=== PATIENT | female | born 1950 | race Two or more races ===

== ENCOUNTER → 2024-12-01 | Day surgery (SDC) | payer OTHER ==
[~2024-12-01] VITALS: Ht 147.3 cm; Wt 48.5 kg
[~2024-12-01] MED LIST: ATOR20TA PO; CHOL20004 PO; FERR-7 PO; KETAMINE 50mg/ML 1ml syringe ONE; LISI20TA56 PO; OMEP-448 PO; ONDANSETRON HCL 4 MG/2 ML VIAL ONE
--- NOTE | 2024-12-01 10:06 | DVHHP2 ---
GI H&P Pre-Op Assessment Date: 12/01/24 Chief complaint: heartburn HPI: per clinic note Past medical history: per clinic note Past surgical history: per clinic note Family history: per clinic note Physical exam: General: NAD, AAOX3 HEENT: PERRL, no scleral icterus, normal hearing, gums without lesions or bleeding, oropharynx clear without erythema or exudate. Neck: Supple without enlargement of the thyroid, or lymphadenopathy. Chest: Normal size and shape, no tenderness, lung morales clear to auscultation and percussion, nonlabored breathing. Heart: RRR, no murmur Abdomen: non-distended, no tenderness to palpation, +BS, no hepatosplenomegaly Extremities: no edema Neurological: CN II-XII intact, sensation intact in all extremities, 5+ strength in all extremities Skin: No rashes, No jaundice Assessment: - heartburn Plan: - EGD - Risks (bleeding, infection, perforation, reaction to sedation medications and cardiopulmonary arrest) and benefit of the procedure were explained to patient. Patient agrees to undergo the procedure. DELFINO BENITES MD Dec 01, 2024 10:06
--- NOTE | 2024-12-01 10:08 | DVHOP2 ---
Operative Report DATE OF OPERATION: 12/01/24 PROCEDURE: Upper Endoscopy. PREOPERATIVE INDICATION: The patient is a 74 -year-old female undergoing endoscopy for GERD. POSTOPERATIVE DIAGNOSES: 1. Hiatal hernia 26-33 cm PROCEDURE PERFORMED BY: Pete Shea SCOPE: Olympus videoendoscope. ASA CLASS: 3 PREOPERATIVE MEDICATIONS: MAC with Dr Monroy PROCEDURE IN DETAIL: After obtaining an informed consent, the patient was placed on left lateral decubitus position. The patient was then sedated with the above medications. A bite block was placed between her teeth. The endoscope was then passed through the oropharynx, into the esophagus, and through the stomach and pylorus up to the second and third part of the duodenum. The stomach and duodenum were normal in appearance. There was hiatal hernia 26- 33 cm. The GEJ was normal in appearance at 26 cm. The esophagus was normal in appearance. The endoscope was then withdrawn. The patient tolerated the procedure well without difficulty. COMPLICATIONS : None SPECIMENS: none DISPOSITION: D/C to home PLAN: 1. Continue with PPI PETE SHEA MD Dec 01, 2024 10:08
--- NOTE | 2024-12-01 10:09 | DVHDS2 ---
Physician Discharge Progress N Final Diagnosis: hiatal hernia Operations or Procedures: Operations or Procedures EGD Condition on Discharge: Good Disposition: Home Discharge Instructions: Diet: Regular Activity: No Restrictions, As Tolerated Medications: resume with previous home medications Follow Up Care: Discharge Statement: "Patient was advised to return to the ER or call 911 if any headaches, dizziness, shortness of breath, chest pain, abdominal pain, bleeding, fevers, or worsening of medical condition. Patient was counseled about treatment plan, medications, possible side effects, patientverbalized understanding. All questions were answered to the best of my ability. This discharge took greater then 30 minutes in planning, reviewing documentation, counseling the patient, and discussing with other team members." DELFINO BENITES MD Dec 01, 2024 10:08
[2024-12-01 10:10] VITALS: PULSE 95; RESP 18; TEMP 98; O2SAT 100
[2024-12-01 10:35] VITALS: BP 144/63; PULSE 87; RESP 16; O2SAT 98
== END | disposition home or self-care (01) ==
LOC: GI 07:49
PROVIDERS: ATTEND Internal Medicine Gastroenterology
DX: R10.13 Epigastric pain (principal); R12 Heartburn; K21.9 Gastro-esophageal reflux disease without esophagitis; K44.9 Diaphragmatic hernia without obstruction or gangrene; I10 Essential (primary) hypertension; E78.5 Hyperlipidemia, unspecified; D64.9 Anemia, unspecified; Z90.710 Acquired absence of both cervix and uterus; Z96.651 Presence of right artificial knee joint; Z98.890 Other specified postprocedural states
CPT/HCPCS: 43235; J2405; J7030

== ENCOUNTER 2025-10-03 18:33 | Inpatient (IN) | payer OTHER ==
[~2025-10-03] VITALS: Ht 147.3 cm; Wt 51.2 kg
[~2025-10-03 18:33] MED LIST changes: -KETAMINE 50mg/ML 1ml syringe ONE; -ONDANSETRON HCL 4 MG/2 ML VIAL ONE
[2025-10-03 19:12] LABS: Hematocrit 38.1 % (36.0-46.0); Hemoglobin 12.5 g/dL (12.2-16.2); Mean Corpuscular Hemoglobin 27.3 pg (28.0-32.0); Mean Corpuscular Volume 83.4 fL (80.0-100.0); Nucleated Red Blood Cells % 0.0 %
[2025-10-03 19:23] LABS: Alanine Aminotransferase 17 U/L (7-40); Albumin 4.8 g/dL (3.2-4.8); Alkaline Phosphatase 107 U/L (46-116); Anion Gap 11 (5-15); BUN/Creatinine Ratio 15.0 (10.0-20.0); Blood Urea Nitrogen 22 mg/dL (9-23); Calcium 10.1 mg/dL (8.7-10.4); Carbon Dioxide 28 mmol/L (20-31); Chloride 105 mmol/L (98-107); Potassium 4.3 mmol/L (3.5-5.1); Sodium 144 mmol/L (136-145); Total Protein 8.0 g/dL (5.7-8.2)
[2025-10-03 19:24] LABS: Bilirubin, Total < 0.2 mg/dL (0.2-1.0); Glucose 115 mg/dL (74-106)
--- NOTE | 2025-10-03 19:26 | DVH ---
CHEST RADIOGRAPH Indication: sob Technique: Single frontal view of the chest was obtained COMPARISON: None FINDINGS: Lungs and pleural spaces are clear. Cardiac silhouette and nena are within normal limits. Bones and soft tissues demonstrate no significant abnormality apart from a moderate size hiatal hernia. IMPRESSION: No acute disease.
--- NOTE | 2025-10-03 19:46 | ED.PDOC ---
SOB-HPI HPI Comments HPI: 75 y/o F, presents to the ED for CC of shortness of breath. Patient is a poor historian. Patient states, she has had multiple chronic issues since, November 2024 including unspecified heart issues that have resulted in difficulty breathing d/t "pressure" within her lungs. Patient reports that she has followed up with her [employer] for SS and has received multiple test, including: a stress test and angiogram in April 2025 without receiving a definitive diagnosis. At this time patient denies chest pain, palpitations, headache, or dizziness. No other symptoms or modifying factors are obtainable at this time. Initial Vitals BP: HR: RR: O2 Sat: Temp: Past Medical history: HTN, HLD Past Surgical history: RIGHT KNEE Medications: ATORVASTATIN, LISINOPRIL Social History: Denies smoking, ETOH, and drug use. Allergies: CARISOPRODOL gomes. HPI: Poor Historian. Patient had heart angiogram in April of this year and had a cardiac stress test in April as well. Patient is on aspirin. Patient denies any actual chest pain or actual dyspnea. REVIEW OF SYSTEMS: CONSTITUTIONAL: Denies acute: fever, diaphoresis, chills, generalized weakness. HEAD: Denies acute: headache, photophobia Eyes: Denies acute: Double vision, vision loss, eye pain, eye discharge. EARS: Denies acute: tinnitus, hearing loss, ear discharge, ear pain, THROAT: Denies acute: sore throat, swelling, difficulty swallowing , pain with swallowing, change in voice. NECK: Denies acute: neck pain, neck swelling, stiff neck. HEART: Denies acute : palpitations, LUNGS: Denies acute: SOB, wheezing, cough, hemoptysis ABDOMEN: Denies acute: abdominal pain, Nausea, Vomiting, diarrhea, melena , hematemesis, hematochezia SKIN: Denies acute: rash, redness, lesions, itchiness. EXTREMITIES: Denies acute: calf pain, numbness, tingling, weakness, denies pain in extremity. Denies acute: Low back pain. Neuro: Denies acute: focal neurological deficit, motor or sensory focal neurological deficit, tremors, seizure like activity, confusion, dizziness, change in mental status, loss of bowel or bladder function, cauda equina like symptoms. : Denies acute: dysuria, hematuria, flank pain, increase in urinary frequency. PSYCH: Denies acute: hallucination, suicidal ideation, homicidal ideation. FEMALE: Denies acute: abnormal vaginal bleeding, foul odor, unusual discharge. PHYSICAL EXAM: General: ----no----acute distress, awake and alert. Head: normocephalic, atraumatic. No raccoon's eyes, no dickerson sign. Neck: supple, trachea is midline, no swelling. Throat: Normal phonation. Eyes:, no erythema, no purulent discharge, no proptosis, no icterus. Heart: regular rate, regular rhythm, no significant murmur appreciated. Lungs: no apparent respiratory distress, Able to speak in full sentences. No wheezing, no rhonchi, no crackles. No stridors Clear to auscultation bilaterally. Abdomen: non tender to palpation, non distended, soft, no guarding, no rebound, + bowel sounds. Neuro: Awake, Alert, oriented to name, self, situation, follows commands GCS=15. Speech is normal. Skin: no petechia, no purpura, no cyanosis, non-pale, not jaundice. Lower extremities: --trace bilateral- Pitting edema no deformity, no focal swelling, no calf TTP. Makes eye contact. moves all four extremities. Face: no apparent facial droop. Ambulating in the ED independently. ED COURSE: DISCLAIMER: This medical document was created using an electronic medical record system with voice recognition software and computerized dictation system. Although this doc ument has been carefully reviewed, there might still be some phonetic and typographical errors. Occasional wrong-word or "sound-alike" substitutions may have occurred due to the inherent limitations of voice recognition software. These areas are purely typographical due to imperfections of the software programs and do not reflect any compromise in the patient's medical care. Please read the chart carefully and recognize, using context, where these substitutions have occurred. Chief Complaint: Shortness of Breath Time Seen by MD: 19:30 Reviewed notes: Nurses Notes, Medications, Allergies Information Source: Patient Mode of Arrival: Ambulatory Severity: Moderate Timing: Months Duration: Since onset Context: At Rest PE Risk Factors: None History of: None Prehospital treatment: None Modifying Factors: Nothing Associated Signs and Symptoms: None Was a procedure done? Was a procedure done?: No Differential Dx Differential Diagnosis: Anxiety, Pneumonia, Sinusitis, Pharyngitis, URI, Other (DDx include ACS, unstable angina, anxiety, PE, pneumothroax, neoplasm, cardiac ischemia, COPD, asthma, CHF, pleural effusion, tobacco abuse, pneumonia, hypoxia, hypercapnia, anemia., infection/sepsis., pulmonary edema. Asthma, Cardiac tamponade, infection.) X-Ray, Labs, Meds, VS Vital Signs Date Time Temp Pulse Resp B/P (MAP) Pulse Ox O2 Delivery O2 Flow Rate FiO2 10/03/25 21:38 97.7 87 16 155/71 (99) 97 97.7 10/03/25 18:35 98.4 95 20 176/83 94 98.4 Lab Test 10/03/25 19:50 10/03/25 19:48 10/03/25 18:54 Range/Units Troponin I High Sensitivity 9 9 </=34 ng/L Blood Gas Specimen Type Arterial Blood Gas Sample Site Left radial Blood Gas Patient Temperature 37.0 Arterial Blood Date Drawn [id number] Arterial Blood pH 7.403 7.350-7.450 Arterial Blood Partial Pressure CO2 38.8 32.0-45.0 mmHg Arterial Blood Partial Pressure O2 68.9 L 83.0-108.0 mmHg Arterial Blood HCO3 23.7 21.0-28.0 mmol/L Arterial Blood Oxygen Saturation 93.5 L 94.0-98.0 % Arterial Blood Base Excess -0.9 -2.0-3.0 mmol/L Arterial Blood Oxyhemoglobin 92.4 L 94.0-98.0 % Arterial Blood Carboxyhemoglobin 1.0 0.5-1.5 % Arterial Blood Methemoglobin 0.2 0.0-1.5 % Skyler Test Modified Blood Gas Total Hemoglobin 13.00 12.0-16.0 g/dL Blood Gas Modality Room air FiO2 % 21.0 White Blood Count 6.9 4.4-10.8 10^3/uL Red Blood Count 4.57 4.0-5.20 10^6/uL Hemoglobin 12.5 12.2-16.2 g/dL Hematocrit 38.1 36.0-46.0 % Mean Corpuscular Volume 83.4 80.0-100.0 fL Mean Corpuscular Hemoglobin 27.3 L 28.0-32.0 pg Mean Corpuscular Hemoglobin Concent 32.8 32.0-36.0 g/dL Red Cell Distribution Width 14.5 H 11.8-14.3 % Platelet Count 212 140-450 10^3/uL Mean Platelet Volume 8.8 6.9-10.8 fL Neutrophils (%) (Auto) 53.5 37.0-80.0 % Lymphocytes (%) (Auto) 36.0 10.0-50.0 % Monocytes (%) (Auto) 8.1 0.0-12.0 % Eosinophils (%) (Auto) 2.0 0.0-7.0 % Basophils (%) (Auto) 0.4 0.0-2.0 % Neutrophils # (Auto) 3.7 1.6-8.6 10 ^3/uL Lymphocytes # (Auto) 2.5 0.4-5.4 10 ^3/uL Monocytes # (Auto) 0.6 0-1.3 10 ^3/uL Eosinophils # (Auto) 0.1 0-0.8 10 ^3/uL Basophils # (Auto) 0 0-0.2 10 ^3/uL Nucleated Red Blood Cells 0.0 % Sodium Level 144 136-145 mmol/L Potassium Level 4.3 3.5-5.1 mmol/L Chloride Level 105 98-107 mmol/L Carbon Dioxide Level 28 20-31 mmol/L Anion Gap 11 5-15 Blood Urea Nitrogen 22 9-23 mg/dL Creatinine 1.47 H 0.550-1.02 mg/dL Glomerular Filtration Rate Calc 37 >90 mL/min BUN/Creatinine Ratio 15.0 10.0-20.0 Serum Glucose 115 H 74-106 mg/dL Lactic Acid Level 1.0 0.4-2.0 mmol/L Calcium Level 10.1 8.7-10.4 mg/dL Total Bilirubin < 0.2 L 0.2-1.0 mg/dL Aspartate Amino Transferase (AST) 24 13-40 U/L Alanine Aminotransferase (ALT) 17 7-40 U/L Alkaline Phosphatase 107 46-116 U/L B-Type Natriuretic Peptide 95.62 0-100 pg/mL Total Protein 8.0 5.7-8.2 g/dL Albumin 4.8 3.2-4.8 g/dL [facility] [id number] [facility] [address] Ph: [phone] DIAGNOSTIC IMAGING Diagnostic Imaging Report : [id number] Signed PATIENT: OZ CROOKACCT: [id number] UNIT: [id number] : 1950 LOC: ER ROOM / BED: / AGE / SEX: 75 / F ADM STATUS: REG ER SERVICE 44 ORDERING PHYSICIAN: OMAIRA MCLAUGHLIN DO PROCEDURE(s): CXRP - CHEST PORTABLE REASON: sob ORDER NUMBER(s): [id number], ACCESSION NUMBER(s): [id number] CHEST RADIOGRAPH Indication: sob Technique: Single frontal view of the chest was obtained COMPARISON: None FINDINGS: Lungs and pleural spaces are clear. Cardiac silhouette and nena are within normal limits. Bones and soft tissues demonstrate no significant abnormality apart from a moderate size hiatal hernia. IMPRESSION: No acute disease. ATED BY: EMILIE IRBY MD DICTATED DATE/TIME: 10/03/251922 SIGNED BY: EMILIE IRBY MD SIGNED DATE/TIME: 10/03/251922 CC: Time of 1ST Reevaluation: 20:00 Reevaluation 1ST: Unchanged Patient Education/Counseling: Diagnosis, Treatment Family Education/Counseling: Other Comments MDM: patient presented with the above HPI.--vague symptoms of possible chest pain possible long pressure----workup was initiated. patient was found with the above mentioned diagnosis. the following medications were ordered: please refer to order lists of meds and tests obtained by myself Dr. Mclaughlin. Patient ED course and VS have been stabilized. Patient has been reassessed in the ED and remained in a stable condition. Pertinent incidental findings were discussed with the patient and/or family. Patient/family voices understanding and is agreeable with plan. Patient has been observed in the ED adequate length of time to insure improvement/stability. Escalation of care considered: Consideration of escalation to observation or admission Workup was essentially unremarkable however patient's ABG shows hypoxemia. Patient was ADMITTED to the medicine team for further evaluation and treatment of their presentation. All the reports of any imaging studies that were ordered by myself were reviewed by myself. SEPSIS Sepsis Screen Date sepsis recognized/suspect: Oct 03, 2025 Time Sepsis recognized/suspect: 1839 Recent Procedure: No On Antibiotic Therapy: No Respiratory Rate >20: No Heart Rate >90: No Temp<36 C (96.8 F) or >38.3 C: No SBP <90 or MAP <65 mmHG: No New Acute Mental Status Change: No Is the patient on CPAP, BIPAP,: No Physician Orders Talent Assistant (10/03/25 ) Heplock Iv (10/03/25 ) Chest Portable (10/03/25 18:45) Electrocardigram (10/03/25 18:45) Abg W/ Co-Ox (10/03/25 19:25) Vital Signs Date Time Temp Pulse Resp B/P (MAP) Pulse Ox O2 Delivery O2 Flow Rate FiO2 10/03/25 21:38 97.7 87 16 155/71 (99) 97 97.7 10/03/25 18:35 98.4 95 20 176/83 94 98.4 Laboratory Tests Test 10/03/25 18:54 Lactic Acid Level 1.0 mmol/L (0.4-2.0) White Blood Count 6.9 10^3/uL (4.4-10.8) Departure 1 Departure Time of Disposition: 20:41 Impression: Primary Impression: Hypoxemia Disposition: ADMITTED INPATIENT Admit to: [facility] Condition: Guarded Additional Instructions: [place] [address] Ph: [phone] DIAGNOSTIC IMAGING Diagnostic Imaging Report : [id number] Signed PATIENT: OZ CROOK ACCT: [id number] UNIT: [id number] : 1950 LOC: ER ROOM / BED: / AGE / SEX: 75 / F ADM STATUS: REG ER SERVICE 44 ORDERING PHYSICIAN: OMAIRA MCLAUGHLIN DO PROCEDURE(s): CXRP - CHEST PORTABLE REASON: sob ORDER NUMBER(s): [id number], ACCESSION NUMBER(s): [id number] CHEST RADIOGRAPH Indication: sob Technique: Single frontal view of the chest was obtained COMPARISON: None FINDINGS: Lungs and pleural spaces are clear. Cardiac silhouette and nena are within normal limits. Bones and soft tissues demonstrate no significant abnormality apart from a moderate size hiatal hernia. IMPRESSION: No acute disease. ATED BY: EMILIE IRBY MD DICTATED DATE/TIME: 10/03/251922 SIGNED BY: EMILIE IRBY MD SIGNED DATE/TIME: 10/03/251922 CC: Discharged With: Self Critical Care Note Critical Care Time?: Yes (35 min-critical care time only) Heart Score Heart Score: Heart Score Response (Comments) Value History Slightly Suspicious 0 EKG Normal 0 Age >65 2 Risk Factors 1 or 2 risk factors 1 Troponin Normal limit 0 Total 3 I personally scribed for OMAIRA MCLAUGHLIN DO ([email or web address]) on 10/03/25 at 19:46. Electronically submitted by Makenzie Torre ([email or web address]). I personally scribed for OMAIRA MCLAUGHLIN DO ([email or web address]) on 10/03/25 at 20:01. Electronically submitted by aMkenzie Torre ([email or web address]). OMAIRA MCLAUGHLIN DO Oct 03, 2025 19:46
[2025-10-03 19:55] LABS: Base Excess -0.9 mmol/L (-2.0-3.0)
[2025-10-03 21:40] VITALS: O2SAT 97
[2025-10-03] MEDS ORDERED: NITROGLYCERIN 0.4 MG SL TAB SL PRN (21:45)
[2025-10-03] MEDS ORDERED: DOCUSATE SOD 100 MG CAP PO PRN (21:45)
[2025-10-03 22:38] VITALS: PULSE 89; RESP 19; O2SAT 98
[2025-10-03] MEDS: hydrALAZINE HCL 20 MG/ML VL IV ONE (23:17)
[2025-10-03] MEDS: MORPHINE SULFATE INJ 2 MG/ml SYRG IV PRN (23:47)
[2025-10-03] MEDS: ONDANSETRON HCL 4 MG/2 ML VIAL IV PRN (23:47)
--- NOTE | 2025-10-03 23:53 | ECG ---
[facility] Test Date: 2025-10-03 Test Time: 23:51:55 Pat Name: OZ RASHIDDepartment: [facility] Room: 0223T Gender: F Asphalt Raker: WILBERTO : 1950 Requested By: OMAIRA MCLAUGHLIN Order Number: [id number] Reading MD: Tim White Measurements Intervals [place] Rate: 118 P: 56 [place]: 135 QRS: 76 QRSD: 71 T: 21 QT: 301 QTc: 422 Interpretive Statements Sinus tachycardia Multiple ventricular premature complexes Aberrant complex Biatrial enlargement Borderline ST depression, diffuse leads Electronically Signed On 10-09-2025 10:07:16 PST by Tim White Please click the below link to view image of tracing.
[2025-10-04] VITALS (11 sets, daily range): BP systolic 113–144; BP diastolic 51–69; PULSE 54–115; RESP 16–20; TEMP 97.4–98.4; O2SAT 95–100
[2025-10-04] MEDS: ACETAMINOPHEN 325 MG TAB PO PRN (01:19)
[2025-10-04] MEDS ORDERED: MELO7.5T7 (01:21)
[2025-10-04] MEDS ORDERED: FAMO-12 (01:21)
[2025-10-04 06:09] LABS: Hematocrit 36.1 % (36.0-46.0); Hemoglobin 12.1 g/dL (12.2-16.2); Mean Corpuscular Hemoglobin 27.8 pg (28.0-32.0); Mean Corpuscular Volume 83.0 fL (80.0-100.0); Nucleated Red Blood Cells % 0.0 %
[2025-10-04 06:26] LABS: Alanine Aminotransferase 16 U/L (7-40); Alkaline Phosphatase 82 U/L (46-116); Anion Gap 10 (5-15); BUN/Creatinine Ratio 14.4 (10.0-20.0); Blood Urea Nitrogen 19 mg/dL (9-23); Calcium 9.7 mg/dL (8.7-10.4); Carbon Dioxide 26 mmol/L (20-31); Glucose 95 mg/dL (74-106); Potassium 4.7 mmol/L (3.5-5.1); Sodium 144 mmol/L (136-145); Total Protein 7.3 g/dL (5.7-8.2)
[2025-10-04 06:27] LABS: Albumin 4.3 g/dL (3.2-4.8); Bilirubin, Total 0.3 mg/dL (0.2-1.0)
[2025-10-04 06:28] LABS: Chloride 108 mmol/L (98-107)
--- NOTE | 2025-10-04 08:13 | DVHPN2 ---
Progress Note - Dictate Date Seen: Oct 04, 2025 Medical Necessity Reason Pt with a Central, PICC or Fol: No vital signs Vital Sign Date Time Temp Pulse Resp B/P (MAP) Pulse Ox O2 Delivery O2 Flow Rate FiO2 10/04/25 05:00 97.4 77 16 123/51 (75) 95 97.4 10/04/25 00:35 Room Air* 0 21 Total Intake and Output 10/03/25 10/03/25 10/04/25 15:00 23:00 07:00 Intake Total 200 ml Balance 200 ml medications Current Medications Medications Dose Ordered Sig/Efren Route Start Time Stop Time Status Last Admin Dose Admin Acetaminophen 325 mg Q4HP PRN PO 10/03/25 21:45 10/04/25 01:19 Acetaminophen/ Hydrocodone Bitart 1 tab Q4HP PRN PO 10/03/25 21:45 Ondansetron HCl 4 mg Q4HP PRN IV 10/03/25 21:45 10/03/25 23:47 Docusate Sodium 100 mg BIDPRN PRN PO 10/03/25 21:45 Nitroglycerin 0.4 mg Q5MINP PRN SL 10/03/25 21:45 Morphine Sulfate 2 mg Q30M PRN IV 10/03/25 21:45 10/03/25 23:47 laboratory and microbiology Laboratory Tests 10/04/25 05:31 Test 10/04/25 05:31 Range/Units Serum Glucose 95 74-106 mg/dL Problem List 1. Atypical chest pain Monitor, cardiology consult, echocardiogram, obtain troponin 2. HLD Monitor, lipid panel 3. Benign essential hypertension Monitor, antihypertensives 4. Valvular heart disease Monitor, cardiology consult 5. Pulmonary hypertension Monitor 6. Shortness of breath Monitor, as needed pain meds, as needed supplemental O2 Assessment/Plan Subjective Patient is awake and alert. Objective Patient was admitted for atypical chest pain and shortness of breath. Patient apparently has some type of valvular disease and pulmonary hypertension. I did update patient's daughter at bedside. Troponin levels were negative. Blood pressure was uncontrolled in the 170s. Antihypertensives were added and blood pressure is now in the 140s. Total cholesterol is 121. Plan Cardiology consult. Echocardiogram is pending. Monitor on EKG. Possible plan for angiogram. Plan discussed with: Patient, Other DEUCE SIMEON NP Oct 04, 2025 08:13
--- NOTE | 2025-10-04 08:13 | DVHHP2 ---
Admitting Diagnosis: SOB History of Present Illness 75 y/o F, presents to the ED for CC of shortness of breath. Patient is a poor historian. Patient states, she has had multiple chronic issues since, November 2024 including unspecified heart issues that have resulted in difficulty breathing d/t "pressure" within her lungs. Patient reports that she has followed up with her Laboratory Supervisor for SS and has received multiple test, including: a stress test and angiogram in April 2025 without receiving a definitive diagnosis. At this time patient denies chest pain, palpitations, headache, or dizziness. No other symptoms or modifying factors are obtainable at this time. While in the emergency department the patient was evaluated by the provider, As per provider: Labs, vital signs, and imagining monitored. Patient will be admitted for further evaluation and treatment. I discussed admission with the patient/family and is in agreement to treatment plan. Patient Family History: Patient reports no known family medical history. Allergies: Coded Allergies: Carisoprodol (Unverified Allergy, Intermediate, Hives, itchy, 11/24/24) Home Meds Reported Medications Meloxicam (Meloxicam) 7.5 Mg Tab 10/04/25 Famotidine (Famotidine) 20 Mg Tab 10/04/25 Omeprazole (Omeprazole Dr) 40 Mg Cap, 40 MG PO DAILY, CAP 11/24/24 Ferrous Sulfate (Iron) 325 Mg Tab, 325 MG PO DAILY, TAB 11/24/24 Cholecalciferol (D3) 50 Mcg Cap, 50 MCG PO DAILY, CAP 11/24/24 Atorvastatin Calcium (Lipitor) 20 Mg Tab, 20 MG PO QPM, TAB 11/24/24 Lisinopril (Lisinopril) 20 Mg Tab, 20 MG PO QPM, TAB 11/24/24 Current Medications Current Medications Medications (Trade) Dose Ordered Sig/Efren Route PRN Reason Start Time Stop Time Status Last Admin Acetaminophen (Tylenol Tablet) 325 mg Q4HP PRN PO MILD PAIN (1-3 PAIN SCALE) 10/03/25 21:45 10/04/25 01:19 Acetaminophen/ Hydrocodone Bitart ([place] 5/325MG Tab) 1 tab Q4HP PRN PO MODERATE PAIN (4-6 PAIN SCALE) 10/03/25 21:45 10/04/25 17:11 Ondansetron HCl (Zofran) 4 mg Q4HP PRN IV NAUSEA / VOMITING 10/03/25 21:45 10/03/25 23:47 Docusate Sodium (Colace Capsule) 100 mg BIDPRN PRN PO FOR CONSTIPATION 10/03/25 21:45 Nitroglycerin (Ntrostat Sublingual) 0.4 mg Q5MINP PRN SL FOR CHEST PAIN 10/03/25 21:45 Morphine Sulfate 2 mg Q30M PRN IV FOR CHEST PAIN 10/03/25 21:45 10/03/25 23:47 Atorvastatin Calcium (Lipitor) 20 mg QPM PO 10/04/25 18:00 10/04/25 17:05 Famotidine (Pepcid Tablet) 20 mg BID PO 10/04/25 10:00 UNV Lisinopril (Zestril Tablet) 20 mg QPM PO 10/04/25 18:00 10/04/25 17:10 Patient Own Medication 50 mcg DAILY PO 10/04/25 10:00 UNV Cholecalciferol (Vitamin D3 Tablet) 2,000 unit DAILY PO 10/04/25 10:00 10/04/25 10:25 Famotidine (Pepcid Tablet) 10 mg DAILY PO 10/04/25 10:00 10/04/25 10:25 Enoxaparin Sodium (Lovenox) 40 mg DAILY SC 10/04/25 10:00 UNV Albuterol (Ventolin Medneb) 2.5 mg Q6HPRN PRN NEB SHORTNESS OF BREATH 10/04/25 10:15 Enoxaparin Sodium (Lovenox) 30 mg DAILY SC 10/05/25 10:00 10/04/25 11:10 Review of Systems Constitutional: denies chills, denies fever, denies malaise Eyes: denies eye pain, denies vision change ENT: denies ear pain, denies headache, denies nasal congestion, denies painful swallowing, denies voice change Cardiovascular: denies chest pain, denies edema, denies orthopnea, denies palpitations, denies paroxysmal nocturnal dyspnea Respiratory: denies cough, denies shortness of breath Gastrointestinal: denies constipation, denies diarrhea, denies nausea, denies vomiting Genitourinary: denies dysuria, denies frequent urination, denies urethral discharge Musculoskeletal: denies back pain, denies joint pain, denies muscle pain Skin: denies bruising, denies itching, denies rash Neurological: denies focal weakness, denies headache, denies sensory changes Psychiatric: denies anxiety, denies depression Endocrine: denies polydipsia, denies polyuria Hematologic/Lymphatic: denies easy bleeding, denies easy bruising, denies enlarged lymph nodes Allergic/Immunologic: denies allergy, denies hives Vital Signs Vital Signs Date Time Temp Pulse Resp B/P (MAP) Pulse Ox O2 Delivery O2 Flow Rate FiO2 10/04/25 20:51 97 Nasal Cannula* 2 28 10/04/25 17:10 115/66 10/04/25 17:00 98.4 77 18 98.4 Physical Exam General Appearance: alert, no distress HEENT: EOMI, PERRLA, normal external inspect of ears, no icterus, no nasal drainage Neck: no carotid bruit, no jugular venous distention (JVD), no lymphadenopathy Chest: normal thorax Respiratory: clear to auscultation, normal air movement Cardiovascular: regular rate and rhythm, no diastolic murmur, no jugular venous distention (JVD), no rub, no systolic murmur Abdominal: soft, no hepatomegaly, no mass, no splenomegaly, no tenderness Genitourinary: grossly normal external Musculoskeletal: no joint tenderness, no swelling Extremities: normal pulses, no calf tenderness, no clubbing, no cyanosis, no edema Skin: no bruising, no jaundice, no rash Neurological: alert, No focal deficit SEPSIS Sepsis Screen Date sepsis recognized/suspect: Oct 03, 2025 Time Sepsis recognized/suspect: 2229 Recent Procedure: No On Antibiotic Therapy: No Respiratory Rate >20: No Heart Rate >90: No Temp<36 C (96.8 F) or >38.3 C: No SBP <90 or MAP <65 mmHG: No New Acute Mental Status Change: No Is the patient on CPAP, BIPAP,: No Physician Orders Activities Specialist (10/03/25 ) Heplock Iv (10/03/25 ) Chest Portable (10/03/25 18:45) Abg W/ Co-Ox (10/03/25 19:25) Admit (10/03/25 21:38) Acetaminophen Tablet (Tylenol Tablet) (10/03/25 21:45) Hydrocodone-Acet 5/325mg Tab ([place] 32 (10/03/25 21:45) Ondansetron Hcl (Zofran) (10/03/25 21:45) Docusate Sodium Capsule (Colace Capsule) (10/03/25 21:45) Cardiac Diet-2gna,Lofat,Lochol (10/04/25 Breakfast) Nitroglycerin Sublingual (Ntrostat Subli (10/03/25 21:45) Morphine Sulfate Injection (10/03/25 21:45) Stat Ekg For Chest Pain (10/03/25 21:38) Notify Md Of Changes From Base (10/03/25 21:38) Bootmaker Hand For 24 Hours (10/03/25 21:38) Emergency Dysrhythmia Protocol (10/03/25 21:38) Rhythm Strips Once Every Shift (10/03/25 21:38) Oxygen By Nasal Cannula (10/03/25 21:38) * Cardiology Consult (10/03/25 21:39) Electrocardigram (10/03/25 23:46) Drug Screen (10/04/25 08:14) Atorvastatin (Lipitor) (10/04/25 18:00) Lisinopril Tablet (Zestril Tablet) (10/04/25 18:00) Cholecalciferol Tablet (Vitamin D3 Table (10/04/25 10:00) Famotidine Tablet (Pepcid Tablet) (10/04/25 10:00) Albuterol Medneb (Ventolin Medneb) (10/04/25 10:15) Enoxaparin Sodium (Lovenox) (10/05/25 10:00) *Consult (10/04/25 17:05) Vital Signs Date Time Temp Pulse Resp B/P (MAP) Pulse Ox O2 Delivery O2 Flow Rate FiO2 10/04/25 20:51 97 Nasal Cannula* 2 28 10/04/25 20:51 97 Room Air 2.0 10/04/25 17:10 115/66 10/04/25 17:00 98.4 77 18 113/62 (79) 95 98.4 10/04/25 13:00 98.2 83 18 135/65 (88) 97 98.2 10/04/25 10:11 98.3 84 18 142/69 100 21 98.3 10/04/25 09:00 98.3 84 18 142/69 (93) 99 98.3 10/04/25 08:00 90 10/04/25 08:00 82 18 96 Nasal Cannula* 1 10/04/25 05:00 97.4 77 16 123/51 (75) 95 97.4 10/04/25 01:00 110 18 144/60 10/04/25 01:00 97.8 115 18 144/59 (87) 95 97.8 10/04/25 00:35 Room Air* 0 21 10/04/25 00:35 97.8 115 18 144/59 (87) 95 97.8 10/04/25 00:04 104 20 134/49 (77) 10/03/25 23:51 118 10/03/25 23:47 120 20 146/60 10/03/25 23:17 172/79 10/03/25 22:38 89 19 98 Room Air* 0 21 10/03/25 22:30 98.9 89 19 176/71 (106) 98 98.9 10/03/25 21:40 97 Room Air* 0 10/03/25 21:38 97.7 87 16 155/71 (99) 97 97.7 10/03/25 18:35 98.4 95 20 176/83 94 98.4 Laboratory Tests Test 10/03/25 18:54 10/04/25 05:31 Lactic Acid Level 1.0 mmol/L (0.4-2.0) White Blood Count 6.9 10^3/uL (4.4-10.8) 8.3 10^3/uL (4.4-10.8) Medications Medications Dose Ordered Sig/Efren Route Start Time Stop Time Status Last Admin Dose Admin Atorvastatin Calcium 20 mg QPM PO 10/04/25 18:00 10/04/25 17:05 Cholecalciferol 2,000 unit DAILY PO 10/04/25 10:00 10/04/25 10:25 Enoxaparin Sodium 30 mg DAILY SC 10/05/25 10:00 10/04/25 11:10 Enoxaparin Sodium 30 mg ONCE ONCE SC 10/04/25 10:45 10/04/25 10:46 DC 10/04/25 11:08 Famotidine 10 mg DAILY PO 10/04/25 10:00 10/04/25 10:25 Lisinopril 20 mg QPM PO 10/04/25 18:00 10/04/25 17:10 Results Labs Test 10/04/25 09:35 10/04/25 05:31 10/03/25 19:50 10/03/25 19:48 Range/Units D-Dimer, Quantitative 0.61 H 0.0-0.49 mg/L FEU White Blood Count 8.3 4.4-10.8 10^3/uL Red Blood Count 4.35 4.0-5.20 10^6/uL Hemoglobin 12.1 L 12.2-16.2 g/dL Hematocrit 36.1 36.0-46.0 % Mean Corpuscular Volume 83.0 80.0-100.0 fL Mean Corpuscular Hemoglobin 27.8 L 28.0-32.0 pg Mean Corpuscular Hemoglobin Concent 33.5 32.0-36.0 g/dL Red Cell Distribution Width 14.5 H 11.8-14.3 % Platelet Count 189 140-450 10^3/uL Mean Platelet Volume 9.2 6.9-10.8 fL Neutrophils (%) (Auto) 71.9 37.0-80.0 % Lymphocytes (%) (Auto) 20.5 10.0-50.0 % Monocytes (%) (Auto) 6.6 0.0-12.0 % Eosinophils (%) (Auto) 0.8 0.0-7.0 % Basophils (%) (Auto) 0.2 0.0-2.0 % Neutrophils # (Auto) 5.9 1.6-8.6 10 ^3/uL Lymphocytes # (Auto) 1.7 0.4-5.4 10 ^3/uL Monocytes # (Auto) 0.5 0-1.3 10 ^3/uL Eosinophils # (Auto) 0.1 0-0.8 10 ^3/uL Basophils # (Auto) 0 0-0.2 10 ^3/uL Nucleated Red Blood Cells 0.0 % Sodium Level 144 136-145 mmol/L Potassium Level 4.7 3.5-5.1 mmol/L Chloride Level 108 H 98-107 mmol/L Carbon Dioxide Level 26 20-31 mmol/L Anion Gap 10 5-15 Blood Urea Nitrogen 19 9-23 mg/dL Creatinine 1.32 H 0.550-1.02 mg/dL Glomerular Filtration Rate Calc 42 >90 mL/min BUN/Creatinine Ratio 14.4 10.0-20.0 Serum Glucose 95 74-106 mg/dL Calcium Level 9.7 8.7-10.4 mg/dL Total Bilirubin 0.3 0.2-1.0 mg/dL Aspartate Amino Transferase (AST) 21 13-40 U/L Alanine Aminotransferase (ALT) 16 7-40 U/L Alkaline Phosphatase 82 46-116 U/L Total Protein 7.3 5.7-8.2 g/dL Albumin 4.3 3.2-4.8 g/dL Triglycerides Level 134 < 150 mg/dL Cholesterol Level 121 < 200 mg/dL LDL Cholesterol 56 < 100 mg/dL HDL Cholesterol 49 40-59 mg/dL Troponin I High Sensitivity 9 </=34 ng/L Blood Gas Specimen Type Arterial Blood Gas Sample Site Left radial Blood Gas Patient Temperature 37.0 Arterial Blood Date Drawn [id number] Arterial Blood pH 7.403 7.350-7.450 Arterial Blood Partial Pressure CO2 38.8 32.0-45.0 mmHg Arterial Blood Partial Pressure O2 68.9 L 83.0-108.0 mmHg Arterial Blood HCO3 23.7 21.0-28.0 mmol/L Arterial Blood Oxygen Saturation 93.5 L 94.0-98.0 % Arterial Blood Base Excess -0.9 -2.0-3.0 mmol/L Arterial Blood Oxyhemoglobin 92.4 L 94.0-98.0 % Arterial Blood Carboxyhemoglobin 1.0 0.5-1.5 % Arterial Blood Methemoglobin 0.2 0.0-1.5 % Skyler Test Modified Blood Gas Total Hemoglobin 13.00 12.0-16.0 g/dL Blood Gas Modality Room air FiO2 % 21.0 Test 10/03/25 18:54 Range/Units Lactic Acid Level 1.0 0.4-2.0 mmol/L B-Type Natriuretic Peptide 95.62 0-100 pg/mL Plan 1. Atypical chest pain Monitor, cardiology consult, echocardiogram, obtain troponin 2. HLD Monitor, lipid panel 3. Benign essential hypertension Monitor, antihypertensives 4. Valvular heart disease Monitor, cardiology consult 5. Pulmonary hypertension Monitor 6. Shortness of breath Monitor, as needed pain meds, as needed supplemental O2 Plan discussed with: Patient, Other DEUCE SIMEON VAMP LINER Oct 04, 2025 08:13
[2025-10-04 08:40] LABS: Triglycerides 134 mg/dL (< 150)
[2025-10-04 08:42] LABS: Cholesterol 121 mg/dL (< 200); HDL Cholesterol 49 mg/dL (40-59)
--- NOTE | 2025-10-04 09:28 | DVHINCON2 ---
Date of service: Oct 04, 2025 History of Present Illness HPI Patient is a 75-year-old female who presented to hospital for shortness of breaths and some chest tightness. Cardiology is involved for cardiac aspects of care. Patient is known to our practice from outside. She has not followed with us as outpatient recently (some insurance issues). He is known to have valvular heart disease. There has been question about mitral stenosis for which the pa tient was supposed to go for SILVINO (not performed: some insurance problem). Home Meds Reported Medications Meloxicam (Meloxicam) 7.5 Mg Tab 10/04/25 Famotidine (Famotidine) 20 Mg Tab 10/04/25 Omeprazole (Omeprazole Dr) 40 Mg Cap, 40 MG PO DAILY, CAP 11/24/24 Ferrous Sulfate (Iron) 325 Mg Tab, 325 MG PO DAILY, TAB 11/24/24 Cholecalciferol (D3) 50 Mcg Cap, 50 MCG PO DAILY, CAP 11/24/24 Atorvastatin Calcium (Lipitor) 20 Mg Tab, 20 MG PO QPM, TAB 11/24/24 Lisinopril (Lisinopril) 20 Mg Tab, 20 MG PO QPM, TAB 11/24/24 Past Medical History Others Past medical history includes hypertension, hyperlipidemia, hiatal hernia, CKD, old history of right knee surgery, goes to process, DJD, short SVT, pulmonary hypertension and history of valvular heart disease (some component of mitral stenosis?). She mentions that she has had left heart catheterization in [facility] in 2001 and was told it was normal (no report has been available to review). Patient Family History: Patient reports no known family medical history. Smoker: No Hx (Negative) Alocohol: None Drugs: None Lives with: With family Review of Systems Constitutional: No symptom reported Ears, Nose, & Throat: No symptom reported Pulmonary/Respiratory: Dyspnea Cardiovascular: Chest Pain All Other Systems Fourteen point review of system was performed. Relevant findings as per above and as per HPI. Otherwise negative. H&P Exam Vital Signs Vital Signs Date Time Temp Pulse Resp B/P (MAP) Pulse Ox O2 Delivery O2 Flow Rate FiO2 10/04/25 05:00 97.4 77 16 123/51 (75) 95 97.4 10/04/25 00:35 Room Air* 0 21 General Appeara: Well developed Eye Exam: bilateral eye PERRL Pulmonary/Respiratory: Rhonci Cardiovascular/Chest: Diastolic murmur Peripheral Pulses: 2+ carotid (R), 2+ carotid (L), 2+ femoral (R), 2+ femoral (L) Abdominal Exam: Normal bowel sounds, Soft Neuro/Mental St: Alert, Oriented Appearance: Appropriate appearance Eye contact/ Speech: Cooperative Labs/Xrays Labs Test 10/04/25 05:31 10/03/25 19:50 10/03/25 19:48 10/03/25 18:54 Range/Units White Blood Count 8.3 4.4-10.8 10^3/uL Red Blood Count 4.35 4.0-5.20 10^6/uL Hemoglobin 12.1 L 12.2-16.2 g/dL Hematocrit 36.1 36.0-46.0 % Mean Corpuscular Volume 83.0 80.0-100.0 fL Mean Corpuscular Hemoglobin 27.8 L 28.0-32.0 pg Mean Corpuscular Hemoglobin Concent 33.5 32.0-36.0 g/dL Red Cell Distribution Width 14.5 H 11.8-14.3 % Platelet Count 189 140-450 10^3/uL Mean Platelet Volume 9.2 6.9-10.8 fL Neutrophils (%) (Auto) 71.9 37.0-80.0 % Lymphocytes (%) (Auto) 20.5 10.0-50.0 % Monocytes (%) (Auto) 6.6 0.0-12.0 % Eosinophils (%) (Auto) 0.8 0.0-7.0 % Basophils (%) (Auto) 0.2 0.0-2.0 % Neutrophils # (Auto) 5.9 1.6-8.6 10 ^3/uL Lymphocytes # (Auto) 1.7 0.4-5.4 10 ^3/uL Monocytes # (Auto) 0.5 0-1.3 10 ^3/uL Eosinophils # (Auto) 0.1 0-0.8 10 ^3/uL Basophils # (Auto) 0 0-0.2 10 ^3/uL Nucleated Red Blood Cells 0.0 % Sodium Level 144 136-145 mmol/L Potassium Level 4.7 3.5-5.1 mmol/L Chloride Level 108 H 98-107 mmol/L Carbon Dioxide Level 26 20-31 mmol/L Anion Gap 10 5-15 Blood Urea Nitrogen 19 9-23 mg/dL Creatinine 1.32 H 0.550-1.02 mg/dL Glomerular Filtration Rate Calc 42 >90 mL/min BUN/Creatinine Ratio 14.4 10.0-20.0 Serum Glucose 95 74-106 mg/dL Calcium Level 9.7 8.7-10.4 mg/dL Total Bilirubin 0.3 0.2-1.0 mg/dL Aspartate Amino Transferase (AST) 21 13-40 U/L Alanine Aminotransferase (ALT) 16 7-40 U/L Alkaline Phosphatase 82 46-116 U/L Total Protein 7.3 5.7-8.2 g/dL Albumin 4.3 3.2-4.8 g/dL Triglycerides Level 134 < 150 mg/dL Cholesterol Level 121 < 200 mg/dL LDL Cholesterol 56 < 100 mg/dL HDL Cholesterol 49 40-59 mg/dL Troponin I High Sensitivity 9 </=34 ng/L Blood Gas Specimen Type Arterial Blood Gas Sample Site Left radial Blood Gas Patient Temperature 37.0 Arterial Blood Date Drawn [id number] Arterial Blood pH 7.403 7.350-7.450 Arterial Blood Partial Pressure CO2 38.8 32.0-45.0 mmHg Arterial Blood Partial Pressure O2 68.9 L 83.0-108.0 mmHg Arterial Blood HCO3 23.7 21.0-28.0 mmol/L Arterial Blood Oxygen Saturation 93.5 L 94.0-98.0 % Arterial Blood Base Excess -0.9 -2.0-3.0 mmol/L Arterial Blood Oxyhemoglobin 92.4 L 94.0-98.0 % Arterial Blood Carboxyhemoglobin 1.0 0.5-1.5 % Arterial Blood Methemoglobin 0.2 0.0-1.5 % Skyler Test Modified Blood Gas Total Hemoglobin 13.00 12.0-16.0 g/dL Blood Gas Modality Room air FiO2 % 21.0 Lactic Acid Level 1.0 0.4-2.0 mmol/L B-Type Natriuretic Peptide 95.62 0-100 pg/mL Assessment/Plan Plan Patient is a 75-year-old female who presented to hospital for shortness of breaths and some chest tightness. Cardiology is involved for cardiac aspects of care. Patient is known to our practice from outside. She has not followed with us as outpatient recently (some insurance issues). He is known to have valvular heart disease. There has been question about mitral stenosis for which the patient was supposed to go for SILVINO (not performed: some insurance problem). Not in acute distress lying flat in bed. No JVD. Mucosa is pink and wet. Not using accessory muscles of breathing. No goiter. Scattered rhonchi in the lungs is heard. Cardiac: Regular, no thrill/gallop. Abdomen is soft. Bowel sound is positive. No gross mass/hepatomegaly. There is no peripheral edema. Past medical history includes hypertension, hyperlipidemia, hiatal hernia, CKD, old history of right knee surgery, goes to process, DJD, short SVT, pulmonary hypertension and history of valvular heart disease (some component of mitral stenosis?). She mentions that she has had left heart catheterization in [facility] in 2001 and was told it was normal (no report has been available to review). Nuclear stress test performed on April 01, 2025 (as outpatient) revealed no ischemia/scar and ejection fraction of 74% Echocardiogram of April 13, 2025 (performed as outpatient) revealed mild concentric left ventricular hypertrophy, hyperdynamic left ventricle with ejection fraction more than 70%, moderate left atrial enlargement, [id number] mitral annular calcification, [id number] mitral regurgitation, some component of mitral stenosis, right ventricular systolic pressure of 50 mm Hg and also suggested for SILVINO Creatinine: 1.47 - 1.32 Potassium: 4.3 - 4.7 Troponin (high sensitive): 9 - 9 BNP: 95.62 Tele reveals sinus rhythm Patient is a 75-year-old female who presented with shortness of breath and chest discomfort. Does have history of valvular heart disease for which the evaluation has not been completed (patient did not follow-up as outpatient/some insurance issues). She does have some component of pulmonary hypertension which could have contributed to the clinical picture. Pulmonary hypertension itself could have been secondary to valvular heart disease? Repeat echocardiogram is advised. If echocardiogram reveals significant valvular heart disease, SILVINO may be needed Shortness of breath Valvular heart disease Pulmonary hypertension Mitral stenosis (degree?) Hypertension Hyperlipidemia Osteoporosis Hiatal hernia Cardiac suggestion for management: Managed on telemetry Follow-up electrolytes and kidney function tests and correct abnormalities EKG Request for Echocardiogram If Echocardiogram reveals significant valvular heart disease, the patient may need SILVINO/right and left heart catheterization Further evaluation and management depends on the above and clinical course Thank you for consultation A total of 75 minutes was spent reviewing the patient record, examining the patient, making a diagnostic and therapeutic plan, discussing this plan with medical personnel, following up on diagnostic studies and following the patient for clinical stability excluding any and all procedures. At least 50% of this time was spent in direct, [id number] contact. Thank you for allowing me to participate in this patient's care. Further recommendations will depend on patient's clinical course. Please do not hesitate to contact me if you have any questions or concerns. This medical document was created using electronic medical record system with [employer] computerized dictation system. Although this document has been carefully reviewed, there may still be some phonetic and typographical errors. These areas are purely typographical due to the imperfection of the software programs, and do not reflect any compromise in the patient's medical care. Plan discussed with: Patient, Other (nurse) KANNAN SANCHEZ MD Oct 04, 2025 09:28
[2025-10-04] MEDS: HYDROcodone-ACET 5/325MG TAB PO PRN (09:36)
[2025-10-04] MEDS ORDERED: FAMOTIDINE 20 MG TAB PO SCH (10:00)
[2025-10-04] MEDS ORDERED: CHOLECALCIFEROL 50 MCG PO SCH (10:00)
[2025-10-04] MEDS ORDERED: ENOXAPARIN SOD 40 MG/0.4 ML SYRINGE SC SCH (10:00)
[2025-10-04] MEDS ORDERED: ALBUTEROL SULF 2.5 MG/0.5ML(0.5%) NEB SOLN NEB PRN (10:15)
[2025-10-04] MEDS: FAMOTIDINE 20 MG TAB PO SCH (10:25)
[2025-10-04] MEDS: CHOLECALCIFEROL (VITD3) 1,000UNIT=25mCg TAB PO SCH (10:25)
[2025-10-04] MEDS: ENOXAPARIN SOD 30 MG/0.3 ML SYRINGE SC ONE (11:08)
[2025-10-04] MEDS: ENOXAPARIN SOD 30 MG/0.3 ML SYRINGE SC SCH (11:10)
[2025-10-04] MEDS: ATORVASTATIN 20 MG TAB PO SCH (17:05)
[2025-10-04] MEDS: LISINOPRIL 20 MG TAB PO SCH (17:10)
--- NOTE | 2025-10-04 19:24 | DVHINCON2 ---
Date of service: Oct 04, [address] Pitts Reason for Consultation Dyspnea History of Present Illness Patient is a 75-year-old woman with past medical history including hypertension, hyperlipidemia, SVT, pulmonary hypertension, hiatal hernia, CKD, and valvular heart disease who presented to the ED on 10/03/25 with complaint of shortness of breath and some chest tightness. Patient has not followed with us as outpatient recently due to insurance issues. There has been question about mitral stenosis for which the patient was supposed to go for SILVINO. Patient was admitted for further care and pulmonary consultation is requested for evaluation and management of dyspnea. Review of Systems: 14-point review of systems negative unless otherwise noted above. Past Medical History: Hypertension, Hyperlipidemia, SVT, pulmonary hypertension, hiatal hernia, CKD, valvular heart disease (some component of mitral stenosis?), DJD, osteoporosis. Past Surgical History: Left heart catheterization in [facility] ([facility] in 2001 and was told it was normal (no report has been available to review). Right knee surgery Medications: Reviewed. Allergies: Carisoprodol. Family History: No family history of premature CAD. No family history of lung disorders. Social History: Nonsmoker. No alcohol or illicit drug use. Family History: Patient reports no known family medical history. Allergies: Coded Allergies: Carisoprodol (Unverified Allergy, Intermediate, Hives, itchy, 11/24/24) Home Meds Reported Medications Meloxicam (Meloxicam) 7.5 Mg Tab 10/04/25 Famotidine (Famotidine) 20 Mg Tab 10/04/25 Omeprazole (Omeprazole Dr) 40 Mg Cap, 40 MG PO DAILY, CAP 11/24/24 Ferrous Sulfate (Iron) 325 Mg Tab, 325 MG PO DAILY, TAB 11/24/24 Cholecalciferol (D3) 50 Mcg Cap, 50 MCG PO DAILY, CAP 11/24/24 Atorvastatin Calcium (Lipitor) 20 Mg Tab, 20 MG PO QPM, TAB 11/24/24 Lisinopril (Lisinopril) 20 Mg Tab, 20 MG PO QPM, TAB 11/24/24 Current Medications Current Medications Medications (Trade) Dose Ordered Sig/Efren Route PRN Reason Start Time Stop Time Status Last Admin Acetaminophen (Tylenol Tablet) 325 mg Q4HP PRN PO MILD PAIN (1-3 PAIN SCALE) 10/03/25 21:45 10/04/25 01:19 Acetaminophen/ Hydrocodone Bitart ([place] 5/325MG Tab) 1 tab Q4HP PRN PO MODERATE PAIN (4-6 PAIN SCALE) 10/03/25 21:45 10/04/25 17:11 Ondansetron HCl (Zofran) 4 mg Q4HP PRN IV NAUSEA / VOMITING 10/03/25 21:45 10/03/25 23:47 Docusate Sodium (Colace Capsule) 100 mg BIDPRN PRN PO FOR CONSTIPATION 10/03/25 21:45 Nitroglycerin (Ntrostat Sublingual) 0.4 mg Q5MINP PRN SL FOR CHEST PAIN 10/03/25 21:45 Morphine Sulfate 2 mg Q30M PRN IV FOR CHEST PAIN 10/03/25 21:45 10/03/25 23:47 Atorvastatin Calcium (Lipitor) 20 mg QPM PO 10/04/25 18:00 10/04/25 17:05 Famotidine (Pepcid Tablet) 20 mg BID PO 10/04/25 10:00 UNV Lisinopril (Zestril Tablet) 20 mg QPM PO 10/04/25 18:00 10/04/25 17:10 Patient Own Medication 50 mcg DAILY PO 10/04/25 10:00 UNV Cholecalciferol (Vitamin D3 Tablet) 2,000 unit DAILY PO 10/04/25 10:00 10/04/25 10:25 Famotidine (Pepcid Tablet) 10 mg DAILY PO 10/04/25 10:00 10/04/25 10:25 Enoxaparin Sodium (Lovenox) 40 mg DAILY SC 10/04/25 10:00 UNV Albuterol (Ventolin Medneb) 2.5 mg Q6HPRN PRN NEB SHORTNESS OF BREATH 10/04/25 10:15 Enoxaparin Sodium (Lovenox) 30 mg DAILY SC 10/05/25 10:00 10/04/25 11:10 Vital Signs Vital Signs Date Time Temp Pulse Resp B/P (MAP) Pulse Ox O2 Delivery O2 Flow Rate FiO2 10/04/25 17:10 115/66 10/04/25 17:00 98.4 77 18 95 98.4 10/04/25 10:11 21 10/04/25 08:00 Nasal Cannula* 1 Physical Exam Gen.: Patient lying in bed in no apparent distress. On supplemental oxygen. Head: Normocephalic, atraumatic. Eyes: EOMI/PERRLA. Ears: Normal hearing. Normal anatomy. Neck/trachea: Trachea midline, supple. Nose: Normal external anatomy. Mouth: Moist mucous membranes. Chest: Decreased air entry bilaterally. No wheezing or rhonchi. Cardiovascular: Positive S1, positive S2. Regular rate and rhythm. Abdomen: Positive bowel sounds in all 4 quadrants. Soft, non-tender, non- distended. : Deferred. Rectal: Deferred. Skin: Warm, dry. Intact. Extremities: 2+ radial pulses bilaterally. No lower extremity edema. Neuro: Awake, alert, oriented x3. No gross motor or sensory deficits. Cranial nerves II through XII intact. Gait not assessed. Labs/Diagnostic Data Labs Test 10/04/25 09:35 10/04/25 05:31 10/03/25 19:50 10/03/25 19:48 Range/Units D-Dimer, Quantitative 0.61 H 0.0-0.49 mg/L FEU White Blood Count 8.3 4.4-10.8 10^3/uL Red Blood Count 4.35 4.0-5.20 10^6/uL Hemoglobin 12.1 L 12.2-16.2 g/dL Hematocrit 36.1 36.0-46.0 % Mean Corpuscular Volume 83.0 80.0-100.0 fL Mean Corpuscular Hemoglobin 27.8 L 28.0-32.0 pg Mean Corpuscular Hemoglobin Concent 33.5 32.0-36.0 g/dL Red Cell Distribution Width 14.5 H 11.8-14.3 % Platelet Count 189 140-450 10^3/uL Mean Platelet Volume 9.2 6.9-10.8 fL Neutrophils (%) (Auto) 71.9 37.0-80.0 % Lymphocytes (%) (Auto) 20.5 10.0-50.0 % Monocytes (%) (Auto) 6.6 0.0-12.0 % Eosinophils (%) (Auto) 0.8 0.0-7.0 % Basophils (%) (Auto) 0.2 0.0-2.0 % Neutrophils # (Auto) 5.9 1.6-8.6 10 ^3/uL Lymphocytes # (Auto) 1.7 0.4-5.4 10 ^3/uL Monocytes # (Auto) 0.5 0-1.3 10 ^3/uL Eosinophils # (Auto) 0.1 0-0.8 10 ^3/uL Basophils # (Auto) 0 0-0.2 10 ^3/uL Nucleated Red Blood Cells 0.0 % Sodium Level 144 136-145 mmol/L Potassium Level 4.7 3.5-5.1 mmol/L Chloride Level 108 H 98-107 mmol/L Carbon Dioxide Level 26 20-31 mmol/L Anion Gap 10 5-15 Blood Urea Nitrogen 19 9-23 mg/dL Creatinine 1.32 H 0.550-1.02 mg/dL Glomerular Filtration Rate Calc 42 >90 mL/min BUN/Creatinine Ratio 14.4 10.0-20.0 Serum Glucose 95 74-106 mg/dL Calcium Level 9.7 8.7-10.4 mg/dL Total Bilirubin 0.3 0.2-1.0 mg/dL Aspartate Amino Transferase (AST) 21 13-40 U/L Alanine Aminotransferase (ALT) 16 7-40 U/L Alkaline Phosphatase 82 46-116 U/L Total Protein 7.3 5.7-8.2 g/dL Albumin 4.3 3.2-4.8 g/dL Triglycerides Level 134 < 150 mg/dL Cholesterol Level 121 < 200 mg/dL LDL Cholesterol 56 < 100 mg/dL HDL Cholesterol 49 40-59 mg/dL Troponin I High Sensitivity 9 </=34 ng/L Blood Gas Specimen Type Arterial Blood Gas Sample Site Left radial Blood Gas Patient Temperature 37.0 Arterial Blood Date Drawn [id number] Arterial Blood pH 7.403 7.350-7.450 Arterial Blood Partial Pressure CO2 38.8 32.0-45.0 mmHg Arterial Blood Partial Pressure O2 68.9 L 83.0-108.0 mmHg Arterial Blood HCO3 23.7 21.0-28.0 mmol/L Arterial Blood Oxygen Saturation 93.5 L 94.0-98.0 % Arterial Blood Base Excess -0.9 -2.0-3.0 mmol/L Arterial Blood Oxyhemoglobin 92.4 L 94.0-98.0 % Arterial Blood Carboxyhemoglobin 1.0 0.5-1.5 % Arterial Blood Methemoglobin 0.2 0.0-1.5 % Skyler Test Modified Blood Gas Total Hemoglobin 13.00 12.0-16.0 g/dL Blood Gas Modality Room air FiO2 % 21.0 Test 10/03/25 18:54 Range/Units Lactic Acid Level 1.0 0.4-2.0 mmol/L B-Type Natriuretic Peptide 95.62 0-100 pg/mL Assessment Impression: Dyspnea Pleural effusion, resolved Atelectasis Hiatal hernia Gastroesophageal reflux disease Chronic cough Plan: Supplemental oxygen Titrate to keep O2 sats above 92%. Bronchodilators PRN. Incentive spirometry Chest x-ray (10/03/25) reveals no acute disease. Follow up Echocardiogram Possible cardiac catheterization if required Cardiology recommendations appreciated Follow up EEG Follow up Neurology recs On Pepcid for GERD Lovenox for DVT ppx Pain control Avoid oversedation Monitor renal function. Monitor electrolytes. Supplement as necessary. Monitor ins and outs. GI prophylaxis - Pepcid DVT prophylaxis - Lovenox Prognosis: Poor given patient's multiple co- morbidities. Rest of plan per hospitalist and other consultants. Thank you Dr. Pitts for allowing me to participate in this patient's care. Further recommendations will depend on the patient's clinical course. Please do not hesitate to contact me if you have any questions or concerns. This medical document was created using an electronic medical record system with [employer] dictation system. Although these documentations are being carefully reviewed, there may still be some phonetic and typographical changes. The errors are purely typographical, due to imperfection on the software program, and do not reflect any compromise in the patient's medical care. Plan discussed with: Other (RN/Dr. Pitts) JOCY [facility] Oct 04, 2025 19:24
[2025-10-05] VITALS (10 sets, daily range): BP systolic 114–151; BP diastolic 58–73; PULSE 76–92; RESP 16–19; TEMP 96.7–99.3; O2SAT 92–97
--- NOTE | 2025-10-05 07:36 | DVHSR ---
APPROVED REPORT EXAM: Two-dimensional and M-mode echocardiogram with Doppler and color Doppler. Blood Pressure: 123/51 mmHg INDICATION Chest Pain RISK FACTORS Height: 50, Weight: 116 DIMENSIONS LVDd 3.6 (3.8-5.7cm) LA (2D) 4.1 (1.9-4.0cm) Aortic Root 2.5 (2.0-3.7cm) LVDs 2.3 (2.5-4.0cm) LA (MM) (1.9-4.0cm) Aortic Cusp Exc 1.1 (1.5-2.0cm) EF (%) 68.0 (55-70%) Rt. Atrium (1.9-4.0cm) Asc. Aorta cm IVSd 1.1 (0.7-1.1cm) RV (D) (1.8-2.4cm) PWd 1.5 (0.7-1.1cm) Mitral Valve Mitral Mitral Stenosis E wave 1.87m/s MV Mean GR. 11mmHg A wave 1.95m/s MV Peak GR. 116mmHg E/A ratio 1.0 2D MVA cm2 DECEL Time 260ms PRESS 1/2 Time 68ms IVRT ms Dop MVA 3.23cm2 Aortic Valve Aortic Valve Aortic Stenosis V1 1.47m/s AO Mean GR. 11mmHg V2 2.27m/s AO Peak GR. 21mmHg LVOT Diameter 1.6 (1.8-2.4cm) Doppler GRECIA 1.30cm2 Pulmonic Valve V2 1.09m/s Tricuspid Valve TR Velocity 3.32m/s RVSP 48mmHg Conclusion Left ventricle: Moderate concentric left ventricular hypertrophy was seen. LVEF was more than 70%. Left ventricular systolic function was hyperdynamic. There was no gross wall motion abnormality. Right ventricle was normal-sized with normal systolic function. Left atrium was moderately dilated. Right atrium was normal-sized. Aortic valve was trileaflet. Aortic sclerosis with no stenosis was observed. There was no aortic insufficiency. Significant Mitral Annular Calcification was observed. Peak/mean pressure gradient across mitral valve was 22/11 mm Hg. Mitral Stenosis (severe) was observed. Mild Mitral Regurgitation was observed. Mild Tricuspid Regurgitation was observed. There was no pulmonary valve insufficiency. Right ventricular systolic pressure was assessed at 48 mm Hg. IVC was normal-sized with normal respiratory variation. Trace pericardial effusion was observed.
--- NOTE | 2025-10-05 07:41 | DVHPN2 ---
Progress Note - Dictate Date Seen: Oct 05, 2025 Medical Necessity Reason Pt with a Central, PICC or Fol: No vital signs Vital Sign Date Time Temp Pulse Resp B/P (MAP) Pulse Ox O2 Delivery O2 Flow Rate FiO2 10/05/25 05:00 99.3 92 16 114/58 (76) 95 99.3 10/04/25 20:51 Nasal Cannula* 2 28 Total Intake and Output 10/04/25 10/04/25 10/05/25 15:00 23:00 07:00 Intake Total 1000 ml 100 ml Balance 1000 ml 100 ml medications Current Medications Medications Dose Ordered Sig/Efren Route Start Time Stop Time Status Last Admin Dose Admin Acetaminophen 325 mg Q4HP PRN PO 10/03/25 21:45 10/04/25 01:19 325 MG Acetaminophen/ Hydrocodone Bitart 1 tab Q4HP PRN PO 10/03/25 21:45 10/04/25 17:11 1 TAB Ondansetron HCl 4 mg Q4HP PRN IV 10/03/25 21:45 10/04/25 23:32 4 MG Docusate Sodium 100 mg BIDPRN PRN PO 10/03/25 21:45 Nitroglycerin 0.4 mg Q5MINP PRN SL 10/03/25 21:45 Morphine Sulfate 2 mg Q30M PRN IV 10/03/25 21:45 10/03/25 23:47 2 MG Atorvastatin Calcium 20 mg QPM PO 10/04/25 18:00 10/04/25 17:05 20 MG Famotidine 20 mg BID PO 10/04/25 10:00 UNV Lisinopril 20 mg QPM PO 10/04/25 18:00 10/04/25 17:10 20 MG Patient Own Medication 50 mcg DAILY PO 10/04/25 10:00 UNV Cholecalciferol 2,000 unit DAILY PO 10/04/25 10:00 10/04/25 10:25 2,000 UNIT Famotidine 10 mg DAILY PO 10/04/25 10:00 10/04/25 10:25 10 MG Enoxaparin Sodium 40 mg DAILY SC 10/04/25 10:00 UNV Albuterol 2.5 mg Q6HPRN PRN NEB 10/04/25 10:15 Enoxaparin Sodium 30 mg DAILY SC 10/05/25 10:00 10/04/25 11:10 30 MG laboratory and microbiology Laboratory Tests 10/04/25 05:31 Test 10/04/25 05:31 Range/Units Serum Glucose 95 74-106 mg/dL Assessment/Plan Patient is a 75-year-old female who presented to hospital for shortness of breaths and some chest tightness. Cardiology is involved for cardiac aspects of care. Patient is known to our practice from outside. She has not followed with us as outpatient recently (some insurance issues). She is known to have valvular heart disease. There has been question about mitral stenosis for which the patient was supposed to go for SILVINO (not performed: some insurance problem). Not in acute distress lying flat in bed. No JVD. Mucosa is pink and wet. Not using accessory muscles of breathing. No goiter. Scattered rhonchi in the lungs is heard. Cardiac: Regular, no thrill/gallop. Abdomen is soft. Bowel sound is positive. No gross mass/hepatomegaly. There is no peripheral edema. Past medical history includes hypertension, hyperlipidemia, hiatal hernia, CKD, old history of right knee surgery, goes to process, DJD, short SVT, pulmonary hypertension and history of valvular heart disease (some component of mitral stenosis?). She mentions that she has had left heart catheterization in [facility] in 2001 and was told it was normal (no report has been available to review). Nuclear stress test performed on April 01, 2025 (as outpatient) revealed no ischemia/scar and ejection fraction of 74% Echocardiogram of April 13, 2025 (performed as outpatient) revealed mild concentric left ventricular hypertrophy, hyperdynamic left ventricle with ejection fraction more than 70%, moderate left atrial enlargement, [id number] mitral annular calcification, [id number] mitral regurgitation, some component of mitral stenosis, right ventricular systolic pressure of 50 mm Hg and also suggested for SILVINO Creatinine: 1.47 - 1.32 Potassium: 4.3 - 4.7 Troponin (high sensitive): 9 - 9 BNP: 95.62 D-Dimer: 0.61 EKG revealed: NSR, Biatrial dilatation, no specific ST T changes Tele reveals sinus rhythm Echocardiogram revealed: Left ventricle: Moderate concentric left ventricular hypertrophy was seen. LVEF was more than 70%. Left ventricular systolic function was hyperdynamic. There was no gross wall motion abnormality. Right ventricle was normal-sized with normal systolic function. Left atrium was moderately dilated. Right atrium was normal-sized. Aortic valve was trileaflet. Aortic sclerosis with no stenosis was observed. There was no aortic insufficiency. Significant Mitral Annular Calcification was observed. Peak/mean pressure gradient across mitral valve was 22/11 mm Hg. Mitral Stenosis (severe) was observed. Mild Mitral Regurgitation was observed. Mild Tricuspid Regurgitation was observed. There was no pulmonary valve insufficiency. Right ventricular systolic pressure was assessed at 48 mm Hg. IVC was normal-sized with normal respiratory variation. Trace pericardial effusion was observed. Patient is a 75-year-old female who presented with shortness of breath and chest discomfort. Does have history of valvular heart disease for which the evaluation has not been completed (patient did not follow-up as outpatient/some insurance issues). She does have some component of pulmonary hypertension which could have contributed to the clinical picture. Pulmonary hypertension itself could have been secondary to valvular heart disease? Repeat echocardiogram is advised (performed and revealed Mitral Stenosis). D-Dimer was performed and was abnormal. Will ask for CTA of lungs and venous duplex of lower ext. Shortness of breath Valvular heart disease Pulmonary hypertension Mitral stenosis, severe Hypertension Hyperlipidemia Osteoporosis Hiatal hernia Abnormal D-Dimer Cardiac suggestion for management: Manage on telemetry Follow-up electrolytes and kidney function tests and correct abnormalities SILVINO/Right and Left Heart Cath tomorrow (Thursday) CTA of lungs Venous duplex of lower ext. Further evaluation and management depends on the above and clinical course A total of 55 minutes was spent reviewing the patient record, examining the patient, making a diagnostic and therapeutic plan, discussing this plan with medical personnel, following up on diagnostic studies and following the patient for clinical stability excluding any and all procedures. At least 50% of this time was spent in direct, [id number] contact. Thank you for allowing me to participate in this patient's care. Further recommendations will depend on patient's clinical course. Please do not hesitate to contact me if you have any questions or concerns. This medical document was created using electronic medical record system with [employer] dictation system. Although this document has been carefully reviewed, there may still be some phonetic and typographical errors. These areas are purely typographical due to the imperfection of the software programs, and do not reflect any compromise in the patient's medical care. Plan discussed with: Patient, Other (nurse) KANNAN SANCHEZ MD Oct 05, 2025 07:41
--- NOTE | 2025-10-05 09:14 | DVHPN2 ---
Progress Note - Dictate Medical Necessity Reason Pt with a Central, PICC or Fol: No vital signs Vital Sign Date Time Temp Pulse Resp B/P (MAP) Pulse Ox O2 Delivery O2 Flow Rate FiO2 10/05/25 07:38 Nasal Cannula* 1 24 10/05/25 07:30 95 10/05/25 05:00 99.3 92 16 114/58 (76) 99.3 Total Intake and Output 10/04/25 10/04/25 10/05/25 15:00 23:00 07:00 Intake Total 1000 ml 100 ml Balance 1000 ml 100 ml medications Current Medications Medications Dose Ordered Sig/Efren Route Start Time Stop Time Status Last Admin Dose Admin Acetaminophen 325 mg Q4HP PRN PO 10/03/25 21:45 10/04/25 01:19 325 MG Acetaminophen/ Hydrocodone Bitart 1 tab Q4HP PRN PO 10/03/25 21:45 10/04/25 17:11 1 TAB Ondansetron HCl 4 mg Q4HP PRN IV 10/03/25 21:45 10/04/25 23:32 4 MG Docusate Sodium 100 mg BIDPRN PRN PO 10/03/25 21:45 Nitroglycerin 0.4 mg Q5MINP PRN SL 10/03/25 21:45 Morphine Sulfate 2 mg Q30M PRN IV 10/03/25 21:45 10/03/25 23:47 2 MG Atorvastatin Calcium 20 mg QPM PO 10/04/25 18:00 10/04/25 17:05 20 MG Famotidine 20 mg BID PO 10/04/25 10:00 UNV Lisinopril 20 mg QPM PO 10/04/25 18:00 10/04/25 17:10 20 MG Patient Own Medication 50 mcg DAILY PO 10/04/25 10:00 UNV Cholecalciferol 2,000 unit DAILY PO 10/04/25 10:00 10/04/25 10:25 2,000 UNIT Famotidine 10 mg DAILY PO 10/04/25 10:00 10/04/25 10:25 10 MG Enoxaparin Sodium 40 mg DAILY SC 10/04/25 10:00 UNV Albuterol 2.5 mg Q6HPRN PRN NEB 10/04/25 10:15 Enoxaparin Sodium 30 mg DAILY SC 10/05/25 10:00 laboratory and microbiology Laboratory Tests 10/04/25 05:31 Test 10/04/25 05:31 Range/Units Serum Glucose 95 74-106 mg/dL Problem List 1. Atypical chest pain Monitor, cardiology consult, echocardiogram, obtain troponin 2. HLD Monitor, lipid panel 3. Benign essential hypertension Monitor, antihypertensives 4. Valvular heart disease Monitor, cardiology consult 5. Pulmonary hypertension Monitor 6. Shortness of breath Monitor, as needed pain meds, as needed supplemental O2 Assessment/Plan Subjective Patient is awake and alert. Objective Patient was admitted for atypical chest pain and shortness of breath. Patient apparently has some type of valvular disease and pulmonary hypertension. I did update patient's daughter at bedside. Troponin levels were negative. Blood pressure was uncontrolled in the 170s. Antihypertensives were added and blood pressure is now in the 140s. Total cholesterol is 121. Plan Cardiology consult. Echocardiogram is pending. Monitor on EKG. Possible plan for angiogram. DEUCE SIMEON NP Oct 05, 2025 09:14
--- NOTE | 2025-10-05 09:16 | DVHPN2 ---
Progress Note - Dictate Date Seen: Oct 05, 2025 Medical Necessity Reason Pt with a Central, PICC or Fol: No vital signs Vital Sign Date Time Temp Pulse Resp B/P (MAP) Pulse Ox O2 Delivery O2 Flow Rate FiO2 10/05/25 07:38 Nasal Cannula* 1 24 10/05/25 07:30 95 10/05/25 05:00 99.3 92 16 114/58 (76) 99.3 Total Intake and Output 10/04/25 10/04/25 10/05/25 15:00 23:00 07:00 Intake Total 1000 ml 100 ml Balance 1000 ml 100 ml medications Current Medications Medications Dose Ordered Sig/Efren Route Start Time Stop Time Status Last Admin Dose Admin Acetaminophen 325 mg Q4HP PRN PO 10/03/25 21:45 10/04/25 01:19 325 MG Acetaminophen/ Hydrocodone Bitart 1 tab Q4HP PRN PO 10/03/25 21:45 10/04/25 17:11 1 TAB Ondansetron HCl 4 mg Q4HP PRN IV 10/03/25 21:45 10/04/25 23:32 4 MG Docusate Sodium 100 mg BIDPRN PRN PO 10/03/25 21:45 Nitroglycerin 0.4 mg Q5MINP PRN SL 10/03/25 21:45 Morphine Sulfate 2 mg Q30M PRN IV 10/03/25 21:45 10/03/25 23:47 2 MG Atorvastatin Calcium 20 mg QPM PO 10/04/25 18:00 10/04/25 17:05 20 MG Famotidine 20 mg BID PO 10/04/25 10:00 UNV Lisinopril 20 mg QPM PO 10/04/25 18:00 10/04/25 17:10 20 MG Patient Own Medication 50 mcg DAILY PO 10/04/25 10:00 UNV Cholecalciferol 2,000 unit DAILY PO 10/04/25 10:00 10/04/25 10:25 2,000 UNIT Famotidine 10 mg DAILY PO 10/04/25 10:00 10/04/25 10:25 10 MG Enoxaparin Sodium 40 mg DAILY SC 10/04/25 10:00 UNV Albuterol 2.5 mg Q6HPRN PRN NEB 10/04/25 10:15 Enoxaparin Sodium 30 mg DAILY SC 10/05/25 10:00 laboratory and microbiology Laboratory Tests 10/04/25 05:31 Test 10/04/25 05:31 Range/Units Serum Glucose 95 74-106 mg/dL Problem List 1. Atypical chest pain Monitor, cardiology consult, echocardiogram, obtain troponin 2. HLD Monitor, lipid panel 3. Benign essential hypertension Monitor, antihypertensives 4. Valvular heart disease Monitor, cardiology consult 5. Pulmonary hypertension Monitor 6. Shortness of breath Monitor, as needed pain meds, as needed supplemental O2 Assessment/Plan Subjective Patient is awake and alert. Objective Patient is still having periodic chest pain. Patient had an echocardiogram done yesterday. Patient was seen by cardiology. Patient found to have mitral valve stenosis. Right ventricular systolic pressure is 48. Estimated EF is over 70%. Patient has underlying pulmonary hypertension. Plan Cardiology to schedule patient for SILVINO and left heart cath in a.m.. Continue to monitor EKG. Continue PPI DVT prophylaxis. Plan discussed with: Patient, Other DEUCE SIMEON NP Oct 05, 2025 09:16
--- NOTE | 2025-10-05 10:25 | ECG ---
[facility] Test Date: 2025-10-04 Test Time: 08:12:30 Pat Name: OZ RASHIDDepartment: Respiratoy Room: 0223T B Gender: F [employer] Vendor: DELIA : 1950 Requested By: OMAIRA MCLAUGHLIN Order Number: [id number] Reading MD: Tim White Measurements Intervals [place] Rate: 89 P: 64 IN: 142 QRS: 66 QRSD: 74 T: 7 QT: 356 QTc: 434 Interpretive Statements Sinus rhythm Biatrial enlargement Abnormal R-wave progression, late transition Baseline wander in lead(s) I,II,III,aVL,aVF Electronically Signed On 10-09-2025 11:03:57 PST by Tim White Please click the below link to view image of tracing.
--- NOTE | 2025-10-05 10:59 | DVH ---
Bilateral lower extremity venous duplex Clinical History: D-Dimer is elevated Comparison: US ECHO 2D MODE CARDIAC DOP on DOS: 10/04/25, XY CHEST PORTABLE on DOS: 10/03/25 Findings: Duplex Doppler evaluation of the deep venous systems of both lower extremities from the common femoral veins to the popliteal veins including color Doppler and spectral/pulsed waveform analysis was performed. RIGHT SIDE: The common femoral vein demonstrates appropriate compressibility and waveform variability. There is compressibility/patency of the great saphenous vein at the proximal thigh. The femoral vein demonstrates appropriate compressibility and waveform variability. The deep femoral vein demonstrates appropriate compressibility and waveform variability. The popliteal vein demonstrates appropriate compressibility and waveform variability. There is normal compressibility at the tibioperoneal trunk. LEFT SIDE: The common femoral vein demonstrates appropriate compressibility and waveform variability. There is compressibility/patency of the great saphenous vein at the proximal thigh. The femoral vein demonstrates appropriate compressibility and waveform variability. The deep femoral vein demonstrates appropriate compressibility and waveform variability. The popliteal vein demonstrates appropriate compressibility and waveform variability. There is normal compressibility at the tibioperoneal trunk. IMPRESSION: No right or left femoropopliteal venous thrombosis. If clinical concern/symptoms persist or worsen, short-interval follow-up study is suggested. END IMPRESSION:
[2025-10-05 11:47] LABS: Opiate Scree,Urine Neg (NEGATIVE)
[2025-10-05 11:50] LABS: Amphetamine Screen, Urine Neg (NEGATIVE); Barbiturate Scree,Urine Neg (NEGATIVE); Benzodiazephine Screen, Urine Neg (NEGATIVE); Cannabinoid Screen, Urine Neg (NEGATIVE); Cocaine Screen, Urine Neg (NEGATIVE); Phencyclidine Screen, Urine Neg (NEGATIVE)
[2025-10-05] MEDS: IOHEXOL 350 MG/ML 100ML IJ ONE (12:40)
--- NOTE | 2025-10-05 13:59 | DVH ---
Procedure: CT CT ANGIO CHEST CONTRAST Reason for study/Clinical History: Rule out pulmoary emboli Comparison Study: US ECHO 2D MODE CARDIAC DOP on DOS: 10/04/25, XY CHEST PORTABLE on DOS: 10/03/25 Exam Date: 10/05/2025 12:[address] Angio Chest with Contrast TECHNIQUE: Multiple axial CT images of chest was performed following intravenous contrast administration and coronal reformatting was performed. 3-D/MIP images were obtained. Radiation Dose : CTDI volume is 8.87 mGy. Dose-length product is 454.58 mGy*cm FINDINGS: Pulmonary Arteries: Nondiagnostic for pulmonary emboli as the Hounsfield units in the right main pulmonary artery measures 114 Hounsfield units. There is normal dimensional of main PA. Lungs: There is no peripheral pulmonary infarction, consolidation, pleural effusion, or right heart strain. There is no pneumothorax or pneumomediastinum. Aorta and Vasculature: There is normal caliber of thoracic aorta without evidence of aortic dissection, intramural hematoma or aneurysm. Lymph Nodes: There is no significant intrathoracic or axillary lymphadenopathy on CT size criteria. Lower Neck: Visualized portions of the thyroid gland are unremarkable. Mediastinum: Heart size is normal. There is no pericardial effusion. The esophagus is unremarkable. Musculoskeletal: No aggressive focal bony lesions, acute fractures or dislocation. Chest wall: Unremarkable Partially visualized upper abdome demonstrates Large hiatal hernia. 3 cm left renal cyst. IMPRESSION: Nondiagnostic for pulmonary emboli as the Hounsfield units in the right main pulmonary artery measures 114 Hounsfield units. Therefore PE can not be excluded. Large hiatal hernia. 3 cm left renal cyst. END IMPRESSION: All CT scans at this medical facility are performed using dose modulation techniques as appropriate to a performed exam including the following: Automated exposure control was utilized; adjustment of the MA and/or KV according to patient size; and use of iterative reconstruction technique.
[2025-10-05 17:30] LABS: INR 0.98 (0.9-1.15); Partial Thromboplastin Time 28.2 SEC (24.5-34.5); Prothrombin Time 10.4 sec (9.3-11.8)
--- NOTE | 2025-10-05 22:13 | DVHPN2 ---
Progress Note - Dictate Date Seen: Oct 05, 2025 Medical Necessity Reason Pt with a Central, PICC or Fol: No Subjective Patient seen and examined at bedside. Breathing comfortably on room air. Overnight events reviewed. vital signs Vital Sign Date Time Temp Pulse Resp B/P (MAP) Pulse Ox O2 Delivery O2 Flow Rate FiO2 10/05/25 20:47 98.0 76 19 130/70 (90) 96 98.0 10/05/25 10:00 Room Air 0.0 10/05/25 10:00 21 Total Intake and Output 10/04/25 10/04/25 10/05/25 15:00 23:00 07:00 Intake Total 1000 ml 100 ml Balance 1000 ml 100 ml medications Current Medications Medications Dose Ordered Sig/Efren Route Start Time Stop Time Status Last Admin Dose Admin Acetaminophen 325 mg Q4HP PRN PO 10/03/25 21:45 10/04/25 01:19 325 MG Acetaminophen/ Hydrocodone Bitart 1 tab Q4HP PRN PO 10/03/25 21:45 10/05/25 21:40 1 TAB Ondansetron HCl 4 mg Q4HP PRN IV 10/03/25 21:45 10/04/25 23:32 4 MG Docusate Sodium 100 mg BIDPRN PRN PO 10/03/25 21:45 Nitroglycerin 0.4 mg Q5MINP PRN SL 10/03/25 21:45 Morphine Sulfate 2 mg Q30M PRN IV 10/03/25 21:45 10/03/25 23:47 2 MG Atorvastatin Calcium 20 mg QPM PO 10/04/25 18:00 10/05/25 17:17 20 MG Famotidine 20 mg BID PO 10/04/25 10:00 UNV Lisinopril 20 mg QPM PO 10/04/25 18:00 10/05/25 17:18 20 MG Patient Own Medication 50 mcg DAILY PO 10/04/25 10:00 UNV Cholecalciferol 2,000 unit DAILY PO 10/04/25 10:00 10/05/25 09:07 2,000 UNIT Famotidine 10 mg DAILY PO 10/04/25 10:00 10/05/25 09:07 10 MG Enoxaparin Sodium 40 mg DAILY SC 10/04/25 10:00 UNV Albuterol 2.5 mg Q6HPRN PRN NEB 10/04/25 10:15 Enoxaparin Sodium 30 mg DAILY SC 10/05/25 10:00 10/05/25 09:12 30 MG objective Gen.: Patient lying in bed in no apparent distress. Breathing on room air. Head: Normocephalic, atraumatic. Eyes: EOMI/PERRLA. Ears: Normal hearing. Normal anatomy. Neck/trachea: Trachea midline, supple. Nose: Normal external anatomy. Mouth: Moist mucous membranes. Chest: Decreased air entry bilaterally. No wheezing or rhonchi. Cardiovascular: Positive S1, positive S2. Regular rate and rhythm. Abdomen: Positive bowel sounds in all 4 quadrants. Soft, non-tender, non- distended. : Deferred. Rectal: Deferred. Skin: Warm, dry. Intact. Extremities: 2+ radial pulses bilaterally. No lower extremity edema. Neuro: Awake, alert, oriented x3. No gross motor or sensory deficits. Cranial nerves II through XII intact. Gait not assessed. laboratory and microbiology Laboratory Tests 10/04/25 05:31 Test 10/04/25 05:31 Range/Units Serum Glucose 95 74-106 mg/dL Assessment/Plan Impression: Dyspnea Pleural effusion, resolved Atelectasis Hiatal hernia Gastroesophageal reflux disease Chronic cough eeg, echo Events: Breathing on room air Supplemental oxygen PRN Incentive spirometry On atorvastatin PPI - Pepcid for GERD/hiatal hernia Lovenox for DVT prophylaxis Echo on 10/04/25 reviewed; Right ventricular systolic pressure was assessed at 48 mm Hg. Moderate concentric left ventricular hypertrophy. LVEF more than 70%. Severe Mitral Stenosis. Mild Mitral Regurgitation. Mild Tricuspid Regurgitation. Trace pericardial effusion Cardiology recommendations appreciated BLE venous duplex reveals no evidence of DVT. CT angio today reviewed; impression: Nondiagnostic for pulmonary emboli as the Hounsfield units in the right main pulmonary artery measures 114 Hounsfield units. Therefore PE cannot be excluded. Large hiatal hernia. 3 cm left renal cyst. Labs and imaging reviewed. Rest of plan as noted below. Plan: Supplemental oxygen PRN Titrate to keep O2 sats above 92%. Bronchodilators PRN. Incentive spirometry Chest x-ray (10/03/25) reveals no acute disease. Follow up EEG Follow up Neurology recs Pain control Avoid oversedation Monitor renal function. Monitor electrolytes. Supplement as necessary. Monitor ins and outs. GI prophylaxis - Pepcid DVT prophylaxis - Lovenox Prognosis: Poor given patient's multiple co- morbidities. Rest of plan per hospitalist and other consultants. Thank you Dr. Pitts for allowing me to participate in this patient's care. Further recommendations will depend on the patient's clinical course. Please do not hesitate to contact me if you have any questions or concerns. This medical document was created using an electronic medical record system with [email or web address] dictation system. Although these documentations are being carefully reviewed, there may still be some phonetic and typographical changes. The errors are purely typographical, due to imperfection on the software program, and do not reflect any compromise in the patient's medical care. Plan discussed with: Patient, Other (ABRAHAM Saenz) JOCY SANTOS [facility] Oct 05, 2025 22:13
[2025-10-06] VITALS (13 sets, daily range): BP systolic 108–148; BP diastolic 51–81; PULSE 63–119; RESP 11–18; TEMP 97.8–98.2; O2SAT 90–98
--- NOTE | 2025-10-06 07:06 | DVHPN2 ---
Progress Note - Dictate Date Seen: Oct 06, 2025 Medical Necessity Reason Pt with a Central, PICC or Fol: No vital signs Vital Sign Date Time Temp Pulse Resp B/P (MAP) Pulse Ox O2 Delivery O2 Flow Rate FiO2 10/06/25 05:00 98.1 78 18 147/81 (103) 94 98.1 10/05/25 20:00 Nasal Cannula* 1 24 Total Intake and Output 10/05/25 10/05/25 10/06/25 15:00 23:00 07:00 Intake Total 590 ml 260 ml Balance 590 ml 260 ml medications Current Medications Medications Dose Ordered Sig/Efren Route Start Time Stop Time Status Last Admin Dose Admin Acetaminophen 325 mg Q4HP PRN PO 10/03/25 21:45 10/04/25 01:19 325 MG Acetaminophen/ Hydrocodone Bitart 1 tab Q4HP PRN PO 10/03/25 21:45 10/05/25 21:40 1 TAB Ondansetron HCl 4 mg Q4HP PRN IV 10/03/25 21:45 10/04/25 23:32 4 MG Docusate Sodium 100 mg BIDPRN PRN PO 10/03/25 21:45 Nitroglycerin 0.4 mg Q5MINP PRN SL 10/03/25 21:45 Morphine Sulfate 2 mg Q30M PRN IV 10/03/25 21:45 10/03/25 23:47 2 MG Atorvastatin Calcium 20 mg QPM PO 10/04/25 18:00 10/05/25 17:17 20 MG Famotidine 20 mg BID PO 10/04/25 10:00 UNV Lisinopril 20 mg QPM PO 10/04/25 18:00 10/05/25 17:18 20 MG Patient Own Medication 50 mcg DAILY PO 10/04/25 10:00 UNV Cholecalciferol 2,000 unit DAILY PO 10/04/25 10:00 10/05/25 09:07 2,000 UNIT Famotidine 10 mg DAILY PO 10/04/25 10:00 10/05/25 09:07 10 MG Enoxaparin Sodium 40 mg DAILY SC 10/04/25 10:00 UNV Albuterol 2.5 mg Q6HPRN PRN NEB 10/04/25 10:15 Enoxaparin Sodium 30 mg DAILY SC 10/05/25 10:00 10/05/25 09:12 30 MG laboratory and microbiology Laboratory Tests 10/04/25 05:31 Test 10/04/25 05:31 Range/Units Serum Glucose 95 74-106 mg/dL Assessment/Plan Patient is a 75-year-old female who presented to hospital for shortness of breaths and some chest tightness. Cardiology is involved for cardiac aspects of care. Patient is known to our practice from outside. She has not followed with us as outpatient recently (some insurance issues). She is known to have valvular heart disease. There has been question about mitral stenosis for which the patient was supposed to go for JIMMIE (not performed: some insurance problem). Not in acute distress lying flat in bed. No JVD. Mucosa is pink and wet. Not using accessory muscles of breathing. No goiter. Scattered rhonchi in the lungs is heard. Cardiac: Regular, no thrill/gallop. Abdomen is soft. Bowel sound is positive. No gross mass/hepatomegaly. There is no peripheral edema. Past medical history includes hypertension, hyperlipidemia, hiatal hernia, CKD, old history of right knee surgery, goes to process, DJD, short SVT, pulmonary hypertension and history of valvular heart disease (some component of mitral stenosis?). She mentions that she has had left heart catheterization in [facility] in 2001 and was told it was normal (no report has been available to review). Nuclear stress test performed on April 01, 2025 (as outpatient) revealed no ischemia/scar and ejection fraction of 74% Echocardiogram of April 13, 2025 (performed as outpatient) revealed mild concentric left ventricular hypertrophy, hyperdynamic left ventricle with ejection fraction more than 70%, moderate left atrial enlargement, [id number] mitral annular calcification, [id number] mitral regurgitation, some component of mitral stenosis, right ventricular systolic pressure of 50 mm Hg and also suggested for JIMMIE Creatinine: 1.47 - 1.32 Potassium: 4.3 - 4.7 Troponin (high sensitive): 9 - 9 BNP: 95.62 D-Dimer: 0.61 UDS: non-revealing Chest xry revealed: IMPRESSION: No acute disease. Venous duplex of lower ext revealed: IMPRESSION: No right or left femoropopliteal venous thrombosis. If clinical concern/symptoms persist or worsen, short-interval follow-up study is suggested. CTA of lungs revealed: IMPRESSION: Nondiagnostic for pulmonary emboli as the Hounsfield units in the right main pulmonary artery measures 114 Hounsfield units. Therefore PE can not be excluded. Large hiatal hernia. 3 cm left renal cyst. EKG revealed: NSR, Biatrial dilatation, no specific ST T changes Tele reveals sinus rhythm Echocardiogram revealed: Left ventricle: Moderate concentric left ventricular hypertrophy was seen. LVEF was more than 70%. Left ventricular systolic function was hyperdynamic. There was no gross wall motion abnormality. Right ventricle was normal-sized with normal systolic function. Left atrium was moderately dilated. Right atrium was normal-sized. Aortic valve was trileaflet. Aortic sclerosis with no stenosis was observed. There was no aortic insufficiency. Significant Mitral Annular Calcification was observed. Peak/mean pressure gradient across mitral valve was 22/11 mm Hg. Mitral Stenosis (severe) was observed. Mild Mitral Regurgitation was observed. Mild Tricuspid Regurgitation was observed. There was no pulmonary valve insufficiency. Right ventricular systolic pressure was assessed at 48 mm Hg. IVC was normal-sized with normal respiratory variation. Trace pericardial effusion was observed. TransEsophageal Echocardiogram (JIMMIE) was performed and revealed: Significant Mitral Annular Calcification and Significant Mitral Stenosis with peak / mean pressure gradient across Mitral Valve of 20/11 mmHg. Right and left heart catheterization was performed. It revealed one-vessel coronary artery disease (RCA) and also significant mitral stenosis with component of pulmonary hypertension. Suggestion is to refer to higher level of care for mitral valve replacement and bypass surgery Patient is a 75-year-old female who presented with shortness of breath and chest discomfort. Does have history of valvular heart disease for which the evaluation has not been completed (patient did not follow-up as outpatient/some insurance issues). She does have some component of pulmonary hypertension which could have contributed to the clinical picture. Pulmonary hypertension itself could have been secondary to valvular heart disease? Presentation is in favor of Pulmonary Edema secondary to Valvular Heart disease. Repeat echocardiogram is advised (performed and revealed Mitral Stenosis). D-Dimer was performed and was abnormal. Will ask for CTA of lungs and venous duplex of lower ext. DVT was ruled out by negative venous duplex. CTA was non-diagnostic. Shortness of breath Pulmonary Edema secondary to Valvular Heart disease (Mitral Stenosis) Valvular heart disease Pulmonary hypertension Mitral stenosis, severe, significant Hypertension Hyperlipidemia Osteoporosis Hiatal hernia Abnormal D-Dimer Cardiac suggestion for management: Manage on telemetry Follow-up electrolytes and kidney function tests and correct abnormalities Status post jimmie/right and left heart catheterization Refer to higher level of care for mitral valve Management/Replacement/Surgery and also CABG (management of RCA disease) Copy of the reports and CD images of the procedures (transthoracic echocardiogram/transesophageal echocardiogram/right and left heart catheterization) should be accompanying the patient to the higher level of care. V/Q scan Further evaluation and management depends on the above and clinical course A total of 55 minutes was spent reviewing the patient record, examining the patient, making a diagnostic and therapeutic plan, discussing this plan with medical personnel, following up on diagnostic studies and following the patient for clinical stability excluding any and all procedures. At least 50% of this time was spent in direct, [id number] contact. Thank you for allowing me to participate in this patient's care. Further recommendations will depend on patient's clinical course. Please do not hesitate to contact me if you have any questions or concerns. This medical document was created using electronic medical record system with [employer] computerized dictation system. Although this document has been carefully reviewed, there may still be some phonetic and typographical errors. These areas are purely typographical due to the imperfection of the software programs, and do not reflect any compromise in the patient's medical care. Plan discussed with: Patient, Other (nurse) KANNAN SANCHEZ MD Oct 06, 2025 07:06
[2025-10-06] MEDS: SODIUM CHL 0.9% 0 ML ONE (07:27)
[2025-10-06] MEDS: ANGIOMAX 250 MG VIAL IV ONE (07:27)
[2025-10-06] MEDS: LIDOCAINE 2%HCL (LOCAL ANESTH.) INJ 20ML MDV ONE (07:27)
[2025-10-06] MEDS: VERAPAMIL 2.5MG/ML INJ 2ML VIAL IV ONE (07:27)
[2025-10-06] MEDS: HEPARIN SODIUM (PORCINE) 5000 UNITS/ML 1ML VIAL ONE (07:27)
[2025-10-06] MEDS: IODIXANOL 320MG/ML 100ML BTL IV ONE ×2 (07:28→09:12)
[2025-10-06] MEDS: HEPARIN IN NS 1000Units/500mL 1,500 ML ONE (07:28)
[2025-10-06] MEDS: fentaNYL CITRATE 100 MCG/2 ML VL IV STA (07:35)
[2025-10-06] MEDS: MIDAZOLAM HCL 2MG/2ML 2ml VIAL (1mg/ml) IV STA (07:35)
[2025-10-06] MEDS: fentaNYL CITRATE 100 MCG/2 ML VL ONE ×2 (07:44→09:57)
[2025-10-06] MEDS: MIDAZOLAM HCL 2MG/2ML 2ml VIAL (1mg/ml) ONE (07:44)
[2025-10-06] MEDS ORDERED: LIDOCAINE VISCOUS 2% 15ML UD MT PRN (07:45)
--- NOTE | 2025-10-06 08:12 | DVHOP2 ---
Operative Report Trans-Esophageal Echocardiogram PROCEDURE REPORT Date of Service: 10/06/2025 Toll Booth Operator: Kannan Sanchez MD PROCEDURE PERFORMED: Transesophageal echocardiogram, conscious sedation administration and supervision, more than 15 minutes. Intra cardiac bubble study. PREOPERATIVE DIAGNOSES: r/o Valvular heart disease. DESCRIPTION OF PROCEDURE: The patient signed informed consent understanding risks, benefits and alternatives of the procedure, she wished to proceed. The patient was given 15 mL of oral viscous lidocaine. She was placed in a left lateral decubitus position and conscious sedation was administered per hospital laboratory technician protocol (1 mg of Versed and 50 mcg of Fentanyl). I administered a bite block into her mouth and a SILVINO probe into the mid esophagus without any difficulties or complications. Multiple planar images were obtained. Bubble study was also performed. At the completion of procedure, SILVINO probe was removed and there were no immediate complications. Vitals signs were stable throughout the procedure. FINDINGS: 1. Left ventricle: Mild concentrated Left ventricular hypertrophy was seen. LVEF was 65%. There was no gross wall motion abnormality seen. 2. Right ventricle: RV was normal sized. 3. Left atrium: LA enlarged 4. Right atrium: RA was normal sized 5. Mitral valve: Significant Mitral Annular Calcification was seen. Mild Mitral regurgitation was seen. Peak/Mean pressure gradient across Mitral valve was 20/11 mmHg. Significant Mitral Stenosis was observed. There was no vegetation 6. Left atrial appendage: Was small sized. There was no thrombus. 7. Aortic valve: Thickened trileaflet valve. No stenosis. No Insufficiency. There was no vegetation 8. Pulmonic valve: Trivial pulmonic insufficiency. No significant stenosis. No gross vegetation. 9. Tricuspid valve: Mild tricuspid regurgitation. There was no vegetation 10. Interatrial septum: Negative color flow for right to left shunt was observed. Bubble study was performed: negative for shunt 11. Pericardium: No significant effusion. 12. Thoracic aorta: No significant plaquing. Significant Mitral Annular calcification and significant Mitral Stenosis with Peak / Mean pressure gradient across Mitral valve of 20/11 mmHg. KANNAN SANCHEZ MD Oct 06, 2025 08:12
--- NOTE | 2025-10-06 10:07 | DVHOP2 ---
Operative Report Procedures performed: Right and left heart catheterization Bilateral coronary angiogram Moderate sedation Diagnosis: Mitral stenosis, Significant Mean pressure gradient across aortic valve: 10.23 mm Hg Calculated mitral valve area: 1.36 centimeter Mitral valve area index: 0.94 cm per meter One-vessel coronary artery disease Mid RCA with 75% lesion (FFR: 0.77) distal RCA with 80% lesion (FFR: 0.72) Mid LAD with nonobstructive lesion (50% with FFR of 0.88) Cardiac suggestion for management: Refer to higher level of care for mitral valve replacement/CABG Findings: Cardiac output: 4.3 L/min Cardiac index: 2.96 L/min/m PCW: 20/12/14 mm Hg PA: 47/18/28 mm Hg RV: 41/1/9 mm Hg RA: 7/9/6 mm Hg LV: 168/-1/7 mm Hg No specific pressure gradient across aortic valve Mitral valve: Mean gradient: 10.23 mm Hg Calculated mitral valve area: 1.36 centimeter Calculated mitral valve area index: 0.94 cm per meter Left main: Left main was a short vessel coming off the left sinus of Valsalva. It was free of disease. LAD: LAD was a large caliber vessel which came off the left main. It provided a medium-sized 1st diagonal and a medium-sized 2nd diagonal. Mid LAD (after takeoff of the 2nd diagonal) had focal 50% lesion (FFR was performed and the result was 0.88: Pointing to hemodynamic non-significant lesion). Other porti ons of LAD and branches were free of disease. LCX: LCX was coming off the left main. LCX throughout its course and branches w as free of disease. RCA: RCA was coming off the right sinus of Valsalva. It was a dominant vessel and provided RPDA/RPLS. Mid RCA had 75% lesion (FFR was 0.77: Pointing to hemodynamically significant lesion). Distal RCA had 80% lesion (FFR was 0.72: Pointing to hemodynamically significant lesion). Presentation: Patient is a 75-year-old female who presented with shortness of b reath and diagnosis of pulmonary edema. Past medical history includes hypertension/hyperlipidemia/some component of CKD and valvular heart disease. As outpatient, the patient was diagnosed to have some degree of mitral stenosis but had not gone for SILVINO for quantification. Transthoracic Echocardiogram revealed significant mitral stenosis (mean pressure gradient of 11 mm Hg). SILVINO was performed which revealed significant mitral stenosis (mean pressure gradient of 11 mm Hg). Patient was sent for right and left heart catheterization. Procedure: After obtaining informed consent, the patient was brought to the medical laboratory technologist. She was prepped and draped in sterile fashion. Right femoral vessels were used for access. 1 mg of Versed and 75 mcg of fentanyl were used for moderate sedation. Under ultrasound guidance and use of micropuncture, femoral arterial and venous access were obtained. Over wire, micropuncture sheaths were exchanged to 6 German femoral sheaths. A 6 German Bridgman-Debi catheter was used to perform right heart catheterization (obtaining pressures and calculating cardiac output: Thermodilution technique). A 6 German pigtail catheter was used to perform left heart catheterization (obtaining pressures and performing left ventriculography). Simultaneous pressures from LV/capillary wedge pressures were obtained. Mitral valve area was calculated. It revealed significant mitral stenosis (mitral valve area of 1.3 centimeter sq). Mean pressure gradient was 10.23 mm Hg. Six German JL4 diagnostic catheter was used to perform left coronary angiography. Six German JR4 diagnostic catheter was used to perform right coronary angiography. We did recognize the disease in RCA. Cathworks FFR of RCA lesions were performed. Mid RCA had the FFR result of 0.77 and distal RCA had FFR result of 0.72. Both results (FFR) were pointing to significant lesions in mid and distal RCA. We also performed FFR of mid LAD lesion and the result was 0.88 (pointing to a nonsignificant lesion). As the patient is to be referred for mitral valve management, RCA lesions were left to be managed by Cardiothoracic surgery (CABG). Total bleeding was less than 15 mL. There was no dissection/hematoma/perforation. Patient tolerated the procedure with no complication. Right femoral artery access site was managed by deploying an Angio-Seal device. Right femoral vein access was managed by manual compression. Fluoroscopy time: 6.6 minutes contrast: 77 mL of KANNAN Joyner MD Oct 06, 2025 10:07
--- NOTE | 2025-10-06 16:35 | DVHPN2 ---
Progress Note Date Seen: Oct 06, 2025 Medical Necessity Reason Pt with a Central, PICC or Fol: No Subjective Review of Systems: CVS:Normal, RESPIRATORY:Normal Objective vital signs Vital Sign Date Time Temp Pulse Resp B/P (MAP) Pulse Ox O2 Delivery O2 Flow Rate FiO2 10/06/25 13:02 98.2 63 14 144/73 (96) 98 98.2 10/06/25 10:00 Room Air 0.0 10/06/25 10:00 21 Total Intake and Output 10/05/25 10/05/25 10/06/25 14:59 22:59 06:59 Intake Total 590 ml 260 ml Balance 590 ml 260 ml medications Current Medications Medications Dose Ordered Sig/Efren Route Start Time Stop Time Status Last Admin Dose Admin Acetaminophen 325 mg Q4HP PRN PO 10/03/25 21:45 10/04/25 01:19 325 MG Acetaminophen/ Hydrocodone Bitart 1 tab Q4HP PRN PO 10/03/25 21:45 10/06/25 11:25 1 TAB Ondansetron HCl 4 mg Q4HP PRN IV 10/03/25 21:45 10/04/25 23:32 4 MG Docusate Sodium 100 mg BIDPRN PRN PO 10/03/25 21:45 Nitroglycerin 0.4 mg Q5MINP PRN SL 10/03/25 21:45 Morphine Sulfate 2 mg Q30M PRN IV 10/03/25 21:45 10/03/25 23:47 2 MG Atorvastatin Calcium 20 mg QPM PO 10/04/25 18:00 10/05/25 17:17 20 MG Famotidine 20 mg BID PO 10/04/25 10:00 UNV Lisinopril 20 mg QPM PO 10/04/25 18:00 10/05/25 17:18 20 MG Patient Own Medication 50 mcg DAILY PO 10/04/25 10:00 UNV Cholecalciferol 2,000 unit DAILY PO 10/04/25 10:00 10/06/25 11:23 2,000 UNIT Famotidine 10 mg DAILY PO 10/04/25 10:00 10/06/25 11:24 10 MG Enoxaparin Sodium 40 mg DAILY SC 10/04/25 10:00 UNV Albuterol 2.5 mg Q6HPRN PRN NEB 10/04/25 10:15 Enoxaparin Sodium 30 mg DAILY SC 10/05/25 10:00 10/05/25 09:12 30 MG Lidocaine HCl 15 ml STAT PRN MT 10/06/25 07:45 Examination: GENERAL:Normal, LUNGS:Normal, CVS:Normal, ABDOMEN:Normal, SKIN:Normal, NEURO:Normal laboratory and microbiology Laboratory Tests 10/04/25 05:31 Test 10/04/25 05:31 Range/Units Serum Glucose 95 74-106 mg/dL Labs and/or images reviewed: Labs reviewed by me, Image(s) reviewed by me Problem List/Assessment/Plan Problem List/Assessment/Plan 1. Atypical chest pain Monitor, cardiology consult, echocardiogram, obtain troponin 2. HLD Monitor, lipid panel 3. Benign essential hypertension Monitor, antihypertensives 4. Valvular heart disease Monitor, cardiology consult 5. Pulmonary hypertension Monitor 6. Shortness of breath Monitor, as needed pain meds, as needed supplemental O2 7. CAD with Mid RCA with 75% lesion (FFR: 0.77) distal RCA with 80% lesion (FFR: 0.72) 8. severe mitral valve stenosis transfer to [facility] for CABG Assessment/Plan Subjective Patient is awake and alert. Objective Patient is still having periodic chest pain. Patient had an echocardiogram done yesterday. Patient was seen by cardiology. Patient found to have mitral valve stenosis. Right ventricular systolic pressure is 48. Estimated EF is over 70%. Patient has underlying pulmonary hypertension. she is status post [facility] and [facility] she was found to have Mid RCA with 75% lesion (FFR: 0.77) distal RCA with 80% lesion (FFR: 0.72) and sevre mitral valve stenosis, per Dr Randolph cardiology she needs [facility] of care for CABG to replace mitral valve. Plan transfer to [facility] for CABG. Continue to monitor EKG. Continue PPI DVT prophylaxis Plan discussed with: Patient My Orders My Orders Orders - WESLEY SINGER Procedure Category Date Status Time Discharge DISCHARGE 10/06/25 Transmitted 16:26 Date of Service: Oct 06, 2025 Billing Provider: MARIA GUADALUPE MOREL MD Common Visit Codes: [id number] INP/OBS CARE (MOD) WESLEY SINGER Oct 06, 2025 16:35
[2025-10-06] MEDS: SODIUM CHLORIDE 0.9% 1,000 ML IV SCH (17:00)
[2025-10-06 18:57] LABS: Hematocrit 34.8 % (36.0-46.0); Hemoglobin 11.6 g/dL (12.2-16.2); Mean Corpuscular Hemoglobin 27.8 pg (28.0-32.0); Mean Corpuscular Volume 83.6 fL (80.0-100.0); Nucleated Red Blood Cells % 0.1 %
[2025-10-06 19:07] LABS: Chloride 105 mmol/L (98-107); Potassium 4.3 mmol/L (3.5-5.1); Sodium 142 mmol/L (136-145)
[2025-10-06 19:08] LABS: Anion Gap 11 (5-15); Carbon Dioxide 26 mmol/L (20-31)
[2025-10-06 19:09] LABS: Calcium 9.3 mg/dL (8.7-10.4)
[2025-10-06 19:13] LABS: BUN/Creatinine Ratio 18.8 (10.0-20.0); Blood Urea Nitrogen 21 mg/dL (9-23); Glucose 96 mg/dL (74-106)
--- NOTE | 2025-10-06 23:38 | DVHPN2 ---
Progress Note - Dictate Date Seen: Oct 06, 2025 Medical Necessity Reason Pt with a Central, PICC or Fol: No Subjective Patient seen and examined at bedside. Breathing comfortably on room air. Overnight events reviewed. vital signs Vital Sign Date Time Temp Pulse Resp B/P (MAP) Pulse Ox O2 Delivery O2 Flow Rate FiO2 10/06/25 21:00 97.8 72 18 148/79 (102) 94 97.8 10/06/25 10:00 Room Air 0.0 10/06/25 10:00 21 Total Intake and Output 10/05/25 10/05/25 10/06/25 15:00 23:00 07:00 Intake Total 590 ml 260 ml Balance 590 ml 260 ml medications Current Medications Medications Dose Ordered Sig/Efren Route Start Time Stop Time Status Last Admin Dose Admin Acetaminophen 325 mg Q4HP PRN PO 10/03/25 21:45 10/04/25 01:19 325 MG Acetaminophen/ Hydrocodone Bitart 1 tab Q4HP PRN PO 10/03/25 21:45 10/06/25 17:34 1 TAB Ondansetron HCl 4 mg Q4HP PRN IV 10/03/25 21:45 10/06/25 22:09 4 MG Docusate Sodium 100 mg BIDPRN PRN PO 10/03/25 21:45 Nitroglycerin 0.4 mg Q5MINP PRN SL 10/03/25 21:45 Morphine Sulfate 2 mg Q30M PRN IV 10/03/25 21:45 10/03/25 23:47 2 MG Atorvastatin Calcium 20 mg QPM PO 10/04/25 18:00 10/06/25 17:33 20 MG Famotidine 20 mg BID PO 10/04/25 10:00 UNV Lisinopril 20 mg QPM PO 10/04/25 18:00 10/06/25 17:33 20 MG Patient Own Medication 50 mcg DAILY PO 10/04/25 10:00 UNV Cholecalciferol 2,000 unit DAILY PO 10/04/25 10:00 10/06/25 11:23 2,000 UNIT Famotidine 10 mg DAILY PO 10/04/25 10:00 10/06/25 11:24 10 MG Enoxaparin Sodium 40 mg DAILY SC 10/04/25 10:00 UNV Albuterol 2.5 mg Q6HPRN PRN NEB 10/04/25 10:15 Enoxaparin Sodium 30 mg DAILY SC 10/05/25 10:00 10/05/25 09:12 30 MG Lidocaine HCl 15 ml STAT PRN MT 10/06/25 07:45 Sodium Chloride 1,000 ml @ 50 mls/hr Q20H IV 10/06/25 16:45 10/06/25 17:00 50 MLS/HR objective Gen.: Patient lying in bed in no apparent distress. Breathing on room air. Head: Normocephalic, atraumatic. Eyes: EOMI/PERRLA. Ears: Normal hearing. Normal anatomy. Neck/trachea: Trachea midline, supple. Nose: Normal external anatomy. Mouth: Moist mucous membranes. Chest: Decreased air entry bilaterally. No wheezing or rhonchi. Cardiovascular: Positive S1, positive S2. Regular rate and rhythm. Abdomen: Positive bowel sounds in all 4 quadrants. Soft, non-tender, non- distended. : Deferred. Rectal: Deferred. Skin: Warm, dry. Intact. Extremities: 2+ radial pulses bilaterally. No lower extremity edema. Neuro: Awake, alert, oriented x3. No gross motor or sensory deficits. Cranial nerves II through XII intact. Gait not assessed. laboratory and microbiology Laboratory Tests 10/06/25 18:24 Test 10/06/25 18:24 Range/Units Serum Glucose 96 74-106 mg/dL Assessment/Plan Impression: Dyspnea Pleural effusion, resolved Atelectasis Hiatal hernia Gastroesophageal reflux disease Chronic cough Events: Breathing on room air Supplemental oxygen PRN Incentive spirometry On atorvastatin Continue PPI - Pepcid for GERD/hiatal hernia Lovenox for DVT prophylaxis Echo on 10/04/25 reviewed; Right ventricular systolic pressure was assessed at 48 mm Hg. Moderate concentric left ventricular hypertrophy. LVEF more than 70%. Severe Mitral Stenosis. Mild Mitral Regurgitation. Mild Tricuspid Regurgitation. Trace pericardial effusion Cardiology recommendations appreciated Recommend higher level of care for CABG - multiple-vessel CAD. BLE venous duplex reveals no evidence of DVT. CT angio today reviewed; impression: Nondiagnostic for pulmonary emboli as the Hounsfield units in the right main pulmonary artery measures 114 Hounsfield units. Therefore PE cannot be excluded. Large hiatal hernia. 3 cm left renal cyst. Labs and imaging reviewed. Rest of plan as noted below. Plan: Supplemental oxygen PRN Titrate to keep O2 sats above 92%. Bronchodilators PRN. Incentive spirometry Chest x-ray (10/03/25) reveals no acute disease. Follow up EEG Follow up Neurology recs Pain control Avoid oversedation Monitor renal function. Monitor electrolytes. Supplement as necessary. Monitor ins and outs. GI prophylaxis - Pepcid DVT prophylaxis - Lovenox Prognosis: Poor given patient's multiple co- morbidities. Rest of plan per hospitalist and other consultants. Thank you Dr. Pitts for allowing me to participate in this patient's care. Further recommendations will depend on the patient's clinical course. Please do not hesitate to contact me if you have any questions or concerns. This medical document was created using an electronic medical record system with [employer] computerized dictation system. Although these documentations are being carefully reviewed, there may still be some phonetic and typographical changes. The errors are purely typographical, due to imperfection on the software program, and do not reflect any compromise in the patient's medical care. Plan discussed with: Patient, Other (ABRAHAM Vnag) JOCY S[facility]OS [facility] Oct 06, 2025 23:38
[2025-10-07] VITALS (8 sets, daily range): BP systolic 110–147; BP diastolic 59–74; PULSE 70–114; RESP 16–19; TEMP 97.3–97.6; O2SAT 92–96
--- NOTE | 2025-10-07 06:26 | DVHINCON2 ---
Date of service: Oct 07, 2025 Family History: Patient reports no known family medical history. Allergies: Coded Allergies: Carisoprodol (Unverified Allergy, Intermediate, Hives, itchy, 11/24/24) Home Meds Reported Medications Meloxicam (Meloxicam) 7.5 Mg Tab 10/04/25 Famotidine (Famotidine) 20 Mg Tab 10/04/25 Omeprazole (Omeprazole Dr) 40 Mg Cap, 40 MG PO DAILY, CAP 11/24/24 Ferrous Sulfate (Iron) 325 Mg Tab, 325 MG PO DAILY, TAB 11/24/24 Cholecalciferol (D3) 50 Mcg Cap, 50 MCG PO DAILY, CAP 11/24/24 Atorvastatin Calcium (Lipitor) 20 Mg Tab, 20 MG PO QPM, TAB 11/24/24 Lisinopril (Lisinopril) 20 Mg Tab, 20 MG PO QPM, TAB 11/24/24 Current Medications Current Medications Medications (Trade) Dose Ordered Sig/Efren Route PRN Reason Start Time Stop Time Status Last Admin Fentanyl Citrate 100 mcg ONCE STAT IV 10/06/25 07:35 10/06/25 07:40 DC 10/06/25 07:35 Lidocaine HCl (Xylocaine 2% Viscous) 15 ml STAT PRN MT FOR SORE THROAT 10/06/25 07:45 Midazolam HCl (Versed Injection) 4 mg ONCE STAT IV 10/06/25 07:35 10/06/25 07:40 DC Sodium Chloride 1,000 ml @ 50 mls/hr Q20H IV 10/06/25 16:45 10/06/25 17:00 Vital Signs Vital Signs Date Time Temp Pulse Resp B/P (MAP) Pulse Ox O2 Delivery O2 Flow Rate FiO2 10/07/25 05:00 97.4 84 17 147/74 (98) 95 97.4 10/07/25 00:12 Room Air* 0 21 Labs/Diagnostic Data Labs Test 10/06/25 18:24 10/05/25 16:49 10/04/25 10:14 10/04/25 09:35 Range/Units White Blood Count 6.1 # 4.4-10.8 10^3/uL Red Blood Count 4.17 4.0-5.20 10^6/uL Hemoglobin 11.6 L 12.2-16.2 g/dL Hematocrit 34.8 L 36.0-46.0 % Mean Corpuscular Volume 83.6 80.0-100.0 fL Mean Corpuscular Hemoglobin 27.8 L 28.0-32.0 pg Mean Corpuscular Hemoglobin Concent 33.3 32.0-36.0 g/dL Red Cell Distribution Width 14.4 H 11.8-14.3 % Platelet Count 181 140-450 10^3/uL Mean Platelet Volume 9.1 6.9-10.8 fL Neutrophils (%) (Auto) 62.9 37.0-80.0 % Lymphocytes (%) (Auto) 25.0 10.0-50.0 % Monocytes (%) (Auto) 11.0 0.0-12.0 % Eosinophils (%) (Auto) 0.8 0.0-7.0 % Basophils (%) (Auto) 0.3 0.0-2.0 % Neutrophils # (Auto) 3.8 1.6-8.6 10 ^3/uL Lymphocytes # (Auto) 1.5 0.4-5.4 10 ^3/uL Monocytes # (Auto) 0.7 0-1.3 10 ^3/uL Eosinophils # (Auto) 0.1 0-0.8 10 ^3/uL Basophils # (Auto) 0 0-0.2 10 ^3/uL Nucleated Red Blood Cells 0.1 % Sodium Level 142 136-145 mmol/L Potassium Level 4.3 3.5-5.1 mmol/L Chloride Level 105 98-107 mmol/L Carbon Dioxide Level 26 20-31 mmol/L Anion Gap 11 5-15 Blood Urea Nitrogen 21 9-23 mg/dL Creatinine 1.12 H 0.550-1.02 mg/dL Glomerular Filtration Rate Calc 51 >90 mL/min BUN/Creatinine Ratio 18.8 10.0-20.0 Serum Glucose 96 74-106 mg/dL Calcium Level 9.3 8.7-10.4 mg/dL Prothrombin Time 10.4 9.3-11.8 sec Prothrombin Time INR 0.98 0.9-1.15 Activated Partial Thromboplast Time 28.2 24.5-34.5 SEC Urine Opiates Screen Neg NEGATIVE Urine Fentanyl Screen Neg NEGATIVE Urine Barbiturates Screen Neg NEGATIVE Urine Phencyclidine Screen Neg NEGATIVE Urine Amphetamines Screen Neg NEGATIVE Urine Benzodiazepines Screen Neg NEGATIVE Urine Cocaine Screen Neg NEGATIVE Urine Cannabinoids Screen Neg NEGATIVE D-Dimer, Quantitative 0.61 H 0.0-0.49 mg/L FEU Test 10/04/25 05:31 10/03/25 19:50 10/03/25 19:48 10/03/25 18:54 Range/Units Total Bilirubin 0.3 0.2-1.0 mg/dL Aspartate Amino Transferase (AST) 21 13-40 U/L Alanine Aminotransferase (ALT) 16 7-40 U/L Alkaline Phosphatase 82 46-116 U/L Total Protein 7.3 5.7-8.2 g/dL Albumin 4.3 3.2-4.8 g/dL Triglycerides Level 134 < 150 mg/dL Cholesterol Level 121 < 200 mg/dL LDL Cholesterol 56 < 100 mg/dL HDL Cholesterol 49 40-59 mg/dL Troponin I High Sensitivity 9 </=34 ng/L Blood Gas Specimen Type Arterial Blood Gas Sample Site Left radial Blood Gas Patient Temperature 37.0 Arterial Blood Date Drawn [id number] Arterial Blood pH 7.403 7.350-7.450 Arterial Blood Partial Pressure CO2 38.8 32.0-45.0 mmHg Arterial Blood Partial Pressure O2 68.9 L 83.0-108.0 mmHg Arterial Blood HCO3 23.7 21.0-28.0 mmol/L Arterial Blood Oxygen Saturation 93.5 L 94.0-98.0 % Arterial Blood Base Excess -0.9 -2.0-3.0 mmol/L Arterial Blood Oxyhemoglobin 92.4 L 94.0-98.0 % Arterial Blood Carboxyhemoglobin 1.0 0.5-1.5 % Arterial Blood Methemoglobin 0.2 0.0-1.5 % Skyler Test Modified Blood Gas Total Hemoglobin 13.00 12.0-16.0 g/dL Blood Gas Modality Room air FiO2 % 21.0 Lactic Acid Level 1.0 0.4-2.0 mmol/L B-Type Natriuretic Peptide 95.62 0-100 pg/mL GABRIEL ROMERO [facility] Oct 07, 2025 06:26
--- NOTE | 2025-10-07 06:27 | DVHPN2 ---
Progress Note - Dictate Date Seen: Oct 07, 2025 Medical Necessity Reason Pt with a Central, PICC or Fol: No vital signs Vital Sign Date Time Temp Pulse Resp B/P (MAP) Pulse Ox O2 Delivery O2 Flow Rate FiO2 10/07/25 05:00 97.4 84 17 147/74 (98) 95 97.4 10/07/25 00:12 Room Air* 0 21 Total Intake and Output 10/06/25 10/06/25 10/07/25 15:00 23:00 07:00 Intake Total 300 ml 400 ml Balance 300 ml 400 ml medications Current Medications Medications Dose Ordered Sig/Efren Route Start Time Stop Time Status Last Admin Dose Admin Acetaminophen 325 mg Q4HP PRN PO 10/03/25 21:45 10/04/25 01:19 Acetaminophen/ Hydrocodone Bitart 1 tab Q4HP PRN PO 10/03/25 21:45 10/06/25 17:34 Ondansetron HCl 4 mg Q4HP PRN IV 10/03/25 21:45 10/06/25 22:09 Docusate Sodium 100 mg BIDPRN PRN PO 10/03/25 21:45 Nitroglycerin 0.4 mg Q5MINP PRN SL 10/03/25 21:45 Morphine Sulfate 2 mg Q30M PRN IV 10/03/25 21:45 10/03/25 23:47 Atorvastatin Calcium 20 mg QPM PO 10/04/25 18:00 10/06/25 17:33 Famotidine 20 mg BID PO 10/04/25 10:00 UNV Lisinopril 20 mg QPM PO 10/04/25 18:00 10/06/25 17:33 Patient Own Medication 50 mcg DAILY PO 10/04/25 10:00 UNV Cholecalciferol 2,000 unit DAILY PO 10/04/25 10:00 10/06/25 11:23 Famotidine 10 mg DAILY PO 10/04/25 10:00 10/06/25 11:24 Enoxaparin Sodium 40 mg DAILY SC 10/04/25 10:00 UNV Albuterol 2.5 mg Q6HPRN PRN NEB 10/04/25 10:15 Cancel Enoxaparin Sodium 30 mg DAILY SC 10/05/25 10:00 10/05/25 09:12 Lidocaine HCl 15 ml STAT PRN MT 10/06/25 07:45 Sodium Chloride 1,000 ml @ 50 mls/hr Q20H IV 10/06/25 16:45 10/06/25 17:00 laboratory and microbiology Laboratory Tests 10/06/25 18:24 Test 10/06/25 18:24 Range/Units Serum Glucose 96 74-106 mg/dL Assessment/Plan Assessment/Plan Patient is a 75-year-old female who presented to hospital for shortness of breaths and some chest tightness. Cardiology is involved for cardiac aspects of care. Patient is known to our practice from outside. She has not followed with us as outpatient recently (some insurance issues). She is known to have valvular heart disease. There has been question about mitral stenosis for which the patient was supposed to go for JIMMIE (not performed: some insurance problem). Not in acute distress lying flat in bed. No JVD. Mucosa is pink and wet. Not using accessory muscles of breathing. No goiter. Scattered rhonchi in the lungs is heard. Cardiac: Regular, no thrill/gallop. Abdomen is soft. Bowel sound is positive. No gross mass/hepatomegaly. There is no peripheral edema. Past medical history includes hypertension, hyperlipidemia, hiatal hernia, CKD, old history of right knee surgery, goes to process, DJD, short SVT, pulmonary hypertension and history of valvular heart disease (some component of mitral stenosis?). She mentions that she has had left heart catheterization in [facility] in 2001 and was told it was normal (no report has been available to review). Nuclear stress test performed on April 01, 2025 (as outpatient) revealed no ischemia/scar and ejection fraction of 74% Echocardiogram of April 13, 2025 (performed as outpatient) revealed mild concentric left ventricular hypertrophy, hyperdynamic left ventricle with ejection fraction more than 70%, moderate left atrial enlargement, [id number] mitral annular calcification, [id number] mitral regurgitation, some component of mitral stenosis, right ventricular systolic pressure of 50 mm Hg and also suggested for JIMMIE Troponin (high sensitive): 9 - 9 BNP: 95.62 D-Dimer: 0.61 UDS: non-revealing Chest xry revealed: IMPRESSION: No acute disease. Venous duplex of lower ext revealed: IMPRESSION: No right or left femoropopliteal venous thrombosis. If clinical concern/symptoms persist or worsen, short-interval follow-up study is suggested. CTA of lungs revealed: IMPRESSION: Nondiagnostic for pulmonary emboli as the Hounsfield units in the right main pulmonary artery measures 114 Hounsfield units. Therefore PE can not be excluded. Large hiatal hernia. 3 cm left renal cyst. EKG revealed: NSR, Biatrial dilatation, no specific ST T changes Tele reveals sinus rhythm Echocardiogram revealed: Left ventricle: Moderate concentric left ventricular hypertrophy was seen. LVEF was more than 70%. Left ventricular systolic function was hyperdynamic. There was no gross wall motion abnormality. Right ventricle was normal-sized with normal systolic function. Left atrium was moderately dilated. Right atrium was normal-sized. Aortic valve was trileaflet. Aortic sclerosis with no stenosis was observed. There was no aortic insufficiency. Significant Mitral Annular Calcification was observed. Peak/mean pressure gradient across mitral valve was 22/11 mm Hg. Mitral Stenosis (severe) was observed. Mild Mitral Regurgitation was observed. Mild Tricuspid Regurgitation was observed. There was no pulmonary valve insufficiency. Right ventricular systolic pressure was assessed at 48 mm Hg. IVC was normal-sized with normal respiratory variation. Trace pericardial effusion was observed. TransEsophageal Echocardiogram (IJMMIE) was performed and revealed: Significant Mitral Annular Calcification and Significant Mitral Stenosis with peak / mean pressure gradient across Mitral Valve of 20/11 mmHg. Right and left heart catheterization was performed. It revealed one-vessel coronary artery disease (RCA) and also significant mitral stenosis with component of pulmonary hypertension. Suggestion is to refer to higher level of care for mitral valve replacement and bypass surgery Patient is a 75-year-old female who presented with shortness of breath and chest discomfort. Does have history of valvular heart disease for which the evaluation has not been completed (patient did not follow-up as outpatient/some insurance issues). She does have some component of pulmonary hypertension which could have contributed to the clinical picture. Pulmonary hypertension itself could have been secondary to valvular heart disease? Presentation is in favor of Pulmonary Edema secondary to Valvular Heart disease. Repeat echocardiogram is advised (performed and revealed Mitral Stenosis). D-Dimer was performed and was abnormal. Will ask for CTA of lungs and venous duplex of lower ext. DVT was ruled out by negative venous duplex. CTA was non-diagnostic. Shortness of breath Pulmonary Edema secondary to Valvular Heart disease (Mitral Stenosis) Valvular heart disease Pulmonary hypertension Mitral stenosis, severe, significant Hypertension Hyperlipidemia Osteoporosis Hiatal hernia Abnormal D-Dimer Cardiac suggestion for management: Manage on telemetry Follow-up electrolytes and kidney function tests and correct abnormalities Status post jimmie/right and left heart catheterization Refer to higher level of care for mitral valve Management/Replacement/Surgery and also CABG (management of RCA disease) Copy of the reports and CD images of the procedures (transthoracic echocardiogram/transesophageal echocardiogram/right and left heart catheterization) should be accompanying the patient to the higher level of care. V/Q scan Further evaluation and management depends on the above and clinical course A total of 55 minutes was spent reviewing the patient record, examining the patient, making a diagnostic and therapeutic plan, discussing this plan with medical personnel, following up on diagnostic studies and following the patient for clinical stability excluding any and all procedures. At least 50% of this time was spent in direct, [id number] contact. Thank you for allowing me to participate in this patient's care. Further recommendations will depend on patient's clinical course. Please do not hesitate to contact me if you have any questions or concerns. This medical document was created using electronic medical record system with [employer] computerized dictation system. Although this document has been carefully reviewed, there may still be some phonetic and typographical errors. These areas are purely typographical due to the imperfection of the software programs, and do not reflect any compromise in the patient's medical care. Plan discussed with: Patient (patient/primary rn ) GABRIEL ROMERO Oct 07, 2025 06:27
[2025-10-07 11:13] LABS: Hematocrit 33.8 % (36.0-46.0); Hemoglobin 11.2 g/dL (12.2-16.2); Mean Corpuscular Hemoglobin 27.6 pg (28.0-32.0); Mean Corpuscular Volume 83.6 fL (80.0-100.0); Nucleated Red Blood Cells % 0.0 %
[2025-10-07 11:22] LABS: Potassium 4.3 mmol/L (3.5-5.1); Sodium 144 mmol/L (136-145)
[2025-10-07 11:23] LABS: Anion Gap 6 (5-15); Calcium 9.5 mg/dL (8.7-10.4); Carbon Dioxide 28 mmol/L (20-31)
[2025-10-07 11:28] LABS: BUN/Creatinine Ratio 13.7 (10.0-20.0); Blood Urea Nitrogen 16 mg/dL (9-23); Glucose 81 mg/dL (74-106)
[2025-10-07 11:31] LABS: Chloride 110 mmol/L (98-107)
--- NOTE | 2025-10-07 17:44 | DVHDS2 ---
Discharge Summary Date of Admission Oct 03, 2025 at 21:38 Date of Discharge: Oct 06, 2025 Labs/Diagnostic Data: Laboratory Results Test 10/07/25 10:57 10/05/25 16:49 10/04/25 10:14 10/04/25 09:35 White Blood Count 7.3 10^3/uL (4.4-10.8) Red Blood Count 4.04 10^6/uL (4.0-5.20) Hemoglobin 11.2 g/dL (12.2-16.2) Hematocrit 33.8 % (36.0-46.0) Mean Corpuscular Volume 83.6 fL (80.0-100.0) Mean Corpuscular Hemoglobin 27.6 pg (28.0-32.0) Mean Corpuscular Hemoglobin Concent 33.1 g/dL (32.0-36.0) Red Cell Distribution Width 14.6 % (11.8-14.3) Platelet Count 175 10^3/uL (140-450) Mean Platelet Volume 9.0 fL (6.9-10.8) Neutrophils (%) (Auto) 63.6 % (37.0-80.0) Lymphocytes (%) (Auto) 25.7 % (10.0-50.0) Monocytes (%) (Auto) 9.7 % (0.0-12.0) Eosinophils (%) (Auto) 0.7 % (0.0-7.0) Basophils (%) (Auto) 0.3 % (0.0-2.0) Neutrophils # (Auto) 4.6 10 ^3/uL (1.6-8.6) Lymphocytes # (Auto) 1.9 10 ^3/uL (0.4-5.4) Monocytes # (Auto) 0.7 10 ^3/uL (0-1.3) Eosinophils # (Auto) 0.1 10 ^3/uL (0-0.8) Basophils # (Auto) 0 10 ^3/uL (0-0.2) Nucleated Red Blood Cells 0.0 % Sodium Level 144 mmol/L (136-145) Potassium Level 4.3 mmol/L (3.5-5.1) Chloride Level 110 mmol/L (98-107) Carbon Dioxide Level 28 mmol/L (20-31) Anion Gap 6 (5-15) Blood Urea Nitrogen 16 mg/dL (9-23) Creatinine 1.17 mg/dL (0.550-1.02) Glomerular Filtration Rate Calc 48 mL/min (>90) BUN/Creatinine Ratio 13.7 (10.0-20.0) Serum Glucose 81 mg/dL (74-106) Calcium Level 9.5 mg/dL (8.7-10.4) Prothrombin Time 10.4 sec (9.3-11.8) Prothrombin Time INR 0.98 (0.9-1.15) Activated Partial Thromboplast Time 28.2 SEC (24.5-34.5) Urine Opiates Screen Neg (NEGATIVE) Urine Fentanyl Screen Neg (NEGATIVE) Urine Barbiturates Screen Neg (NEGATIVE) Urine Phencyclidine Screen Neg (NEGATIVE) Urine Amphetamines Screen Neg (NEGATIVE) Urine Benzodiazepines Screen Neg (NEGATIVE) Urine Cocaine Screen Neg (NEGATIVE) Urine Cannabinoids Screen Neg (NEGATIVE) D-Dimer, Quantitative 0.61 mg/L FEU (0.0-0.49) Test 10/04/25 05:31 10/03/25 19:50 10/03/25 19:48 10/03/25 18:54 Total Bilirubin 0.3 mg/dL (0.2-1.0) Aspartate Amino Transferase (AST) 21 U/L (13-40) Alanine Aminotransferase (ALT) 16 U/L (7-40) Alkaline Phosphatase 82 U/L (46-116) Total Protein 7.3 g/dL (5.7-8.2) Albumin 4.3 g/dL (3.2-4.8) Triglycerides Level 134 mg/dL (< 150) Cholesterol Level 121 mg/dL (< 200) LDL Cholesterol 56 mg/dL (< 100) HDL Cholesterol 49 mg/dL (40-59) Troponin I High Sensitivity 9 ng/L (</=34) Blood Gas Specimen Type Arterial Blood Gas Sample Site Left radial Blood Gas Patient Temperature 37.0 Arterial Blood Date Drawn [id number] Arterial Blood pH 7.403 (7.350-7.450) Arterial Blood Partial Pressure CO2 38.8 mmHg (32.0-45.0) Arterial Blood Partial Pressure O2 68.9 mmHg (83.0-108.0) Arterial Blood HCO3 23.7 mmol/L (21.0-28.0) Arterial Blood Oxygen Saturation 93.5 % (94.0-98.0) Arterial Blood Base Excess -0.9 mmol/L (-2.0-3.0) Arterial Blood Oxyhemoglobin 92.4 % (94.0-98.0) Arterial Blood Carboxyhemoglobin 1.0 % (0.5-1.5) Arterial Blood Methemoglobin 0.2 % (0.0-1.5) Skyler Test Modified Blood Gas Total Hemoglobin 13.00 g/dL (12.0-16.0) Blood Gas Modality Room air FiO2 % 21.0 Lactic Acid Level 1.0 mmol/L (0.4-2.0) B-Type Natriuretic Peptide 95.62 pg/mL (0-100) Other Laboratory Tests 10/07/25 10:57 Brief Hx & Hospital Course: Patient was admitted for evaluation and management of chest pain and shortness of breath. During the hospital stay, she underwent cardiac catheterization performed by Dr. Randolph, which revealed a mid-right coronary artery (RCA) lesion of 75%, distal RCA lesion of 80%, and severe mitral valve stenosis. Following these findings, Dr. Randolph recommended that the patient be transferred to a higher level of care for coronary artery bypass grafting (CABG) and mitral valve repair. However, the patient declined to wait for transfer and elected to leave the hospital against medical advice (AMA). The patient was thoroughly educated on the potential risks, including worsening cardiac ischemia, heart failure, arrhythmia, and . Despite this, she verbalized understanding and chose to leave. Nursing staff documented that the patient stated her daughter would drive her to [place] for further evaluation and treatment. The patient was discharged AMA in stable condition at the time of departure. Condition at Discharge: Undetermined Final Diagnosis/Problems List 1. Atypical chest pain 2. HLD 3. Benign essential hypertension Monitor, antihypertensives 4. Valvular heart disease 5. Pulmonary hypertension 6. Shortness of breath 7. mitral valve stenosis 8. 1 vessel CAD Discharge Disposition: Acute Care Facility Discharge Instruct/Medications Diet: Cardiac 2g Na,low cholest Activity: No Restrictions, As Tolerated Scheduled Atorvastatin Calcium (Lipitor), 20 MG PO QPM, (Reported) Cholecalciferol (D3), 50 MCG PO DAILY, (Reported) Ferrous Sulfate (Iron), 325 MG PO DAILY, (Reported) Lisinopril (Lisinopril), 20 MG PO QPM, (Reported) Omeprazole (Omeprazole Dr), 40 MG PO DAILY, (Reported) Miscellaneous Medications Famotidine (Famotidine), (Reported) Meloxicam (Meloxicam), (Reported) Discharge Statement: "Patient was advised to return to the ER or call 911 if any headaches, dizziness, shortness of breath, chest pain, abdominal pain, bleeding, fevers, or worsening of medical condition. Patient was counseled about treatment plan, medications, possible side effects, patientverbalized understanding. All questions were answered to the best of my ability. This discharge took greater then 30 minutes in planning, reviewing documentation, counseling the patient, and discussing with other team members." ASSESSMENT ASSESSMENT Assessment 1. Atypical chest pain 2. HLD 3. Benign essential hypertension Monitor, antihypertensives 4. Valvular heart disease 5. Pulmonary hypertension 6. Shortness of breath 7. mitral valve stenosis 8. 1 vessel CAD [facility] Oct 07, 2025 17:44
--- NOTE | 2025-10-07 22:16 | DVHPN2 ---
Progress Note - Dictate Date Seen: Oct 07, 2025 Medical Necessity Reason Pt with a Central, PICC or Fol: No Subjective Patient seen and examined at bedside. Breathing comfortably on room air. Overnight events reviewed. vital signs Vital Sign Date Time Temp Pulse Resp B/P (MAP) Pulse Ox O2 Delivery O2 Flow Rate FiO2 10/07/25 13:00 97.5 70 19 127/65 (85) 93 97.5 10/07/25 10:10 Room Air* 0 21 Total Intake and Output 10/06/25 10/06/25 10/07/25 15:00 23:00 07:00 Intake Total 300 ml 400 ml Balance 300 ml 400 ml medications Current Medications Medications Dose Ordered Sig/Efren Route Start Time Stop Time Status Last Admin Dose Admin Famotidine 20 mg BID PO 10/04/25 10:00 UNV Patient Own Medication 50 mcg DAILY PO 10/04/25 10:00 UNV Enoxaparin Sodium 40 mg DAILY SC 10/04/25 10:00 UNV Albuterol 2.5 mg Q6HPRN PRN NEB 10/04/25 10:15 Cancel objective Gen.: Patient lying in bed in no apparent distress. Breathing on room air. Head: Normocephalic, atraumatic. Eyes: EOMI/PERRLA. Ears: Normal hearing. Normal anatomy. Neck/trachea: Trachea midline, supple. Nose: Normal external anatomy. Mouth: Moist mucous membranes. Chest: Decreased air entry bilaterally. No wheezing or rhonchi. Cardiovascular: Positive S1, positive S2. Regular rate and rhythm. Abdomen: Positive bowel sounds in all 4 quadrants. Soft, non-tender, non- distended. : Deferred. Rectal: Deferred. Skin: Warm, dry. Intact. Extremities: 2+ radial pulses bilaterally. No lower extremity edema. Neuro: Awake, alert, oriented x3. No gross motor or sensory deficits. Cranial nerves II through XII intact. Gait not assessed. laboratory and microbiology Laboratory Tests 10/07/25 10:57 Test 10/07/25 10:57 Range/Units Serum Glucose 81 74-106 mg/dL Assessment/Plan Impression: Dyspnea Pleural effusion, resolved Atelectasis Hiatal hernia Gastroesophageal reflux disease Chronic cough Events: Breathing on room air Supplemental oxygen PRN Incentive spirometry On atorvastatin Continue PPI - Pepcid for GERD/hiatal hernia Lovenox for DVT prophylaxis Echo on 10/04/25 reviewed; Right ventricular systolic pressure was assessed at 48 mm Hg. Moderate concentric left ventricular hypertrophy. LVEF more than 70%. Severe Mitral Stenosis. Mild Mitral Regurgitation. Mild Tricuspid Regurgitation. Trace pericardial effusion Cardiology recommendations appreciated Recommend higher level of care for CABG due to multiple-vessel CAD - awaiting transfer. BLE venous duplex reveals no evidence of DVT. CT angio on 10/05/25 reviewed; impression: Nondiagnostic for pulmonary emboli as the Hounsfield units in the right main pulmonary artery measures 114 Hounsfield units. Therefore PE cannot be excluded. Large hiatal hernia. 3 cm left renal cyst. Labs and imaging reviewed. Rest of plan as noted below. Plan: Supplemental oxygen PRN Titrate to keep O2 sats above 92%. Bronchodilators PRN. Incentive spirometry Chest x-ray (10/03/25) reveals no acute disease. Follow up EEG Follow up Neurology recs Pain control Avoid oversedation Monitor renal function. Monitor electrolytes. Supplement as necessary. Monitor ins and outs. GI prophylaxis - Pepcid DVT prophylaxis - Lovenox Prognosis: Poor given patient's multiple co- morbidities. Rest of plan per hospitalist and other consultants. Thank you Dr. Pitts for allowing me to participate in this patient's care. Further recommendations will depend on the patient's clinical course. Please do not hesitate to contact me if you have any questions or concerns. This medical document was created using an electronic medical record system with [employer] dictation system. Although these documentations are being carefully reviewed, there may still be some phonetic and typographical changes. The errors are purely typographical, due to imperfection on the software program, and do not reflect any compromise in the patient's medical care. Plan discussed with: Patient, Other (ABRAHAM Blair) JOCY [facility] Oct 07, 2025 22:16
== END 2025-10-07 15:05 | disposition left against medical advice (07) | DRG 286 ==
LOC: ER 18:33 → OVERFLOW 21:38 → TELE-CENTR 23:58
PROVIDERS: ADMIT Nurse Practitioner; ATTEND Nurse Practitioner
PROC: B24BZZ4 Ultrasonography of Heart with Aorta, Transesophageal (ICD-10-PCS; principal; 2025-10-06)
PROC: 4A023N8 Measurement of Cardiac Sampling and Pressure, Bilateral, Percutaneous Approach (ICD-10-PCS; 2025-10-06)
PROC: B211YZZ Fluoroscopy of Multiple Coronary Arteries using Other Contrast (ICD-10-PCS; 2025-10-06)
PROC: B215YZZ Fluoroscopy of Left Heart using Other Contrast (ICD-10-PCS; 2025-10-06)
PROC: 4A033BC Measurement of Arterial Pressure, Coronary, Percutaneous Approach (ICD-10-PCS; 2025-10-06)
DX: I25.10 Atherosclerotic heart disease of native coronary artery without angina pectoris (principal); N17.0 Acute kidney failure with tubular necrosis; I38 Endocarditis, valve unspecified; I27.20 Pulmonary hypertension, unspecified; J90 Pleural effusion, not elsewhere classified; I12.9 Hypertensive chronic kidney disease with stage 1 through stage 4 chronic kidney disease, or unspecified chronic kidney disease; N18.9 Chronic kidney disease, unspecified; J98.11 Atelectasis; I05.2 Rheumatic mitral stenosis with insufficiency; E78.5 Hyperlipidemia, unspecified; K21.9 Gastro-esophageal reflux disease without esophagitis; K44.9 Diaphragmatic hernia without obstruction or gangrene; M81.0 Age-related osteoporosis without current pathological fracture; Z53.29 Procedure and treatment not carried out because of patient's decision for other reasons; R79.89 Other specified abnormal findings of blood chemistry; N28.1 Cyst of kidney, acquired; I05.8 Other rheumatic mitral valve diseases; Z88.8 Allergy status to other drugs, medicaments and biological substances; Z87.891 Personal history of nicotine dependence; Z59.71 Insufficient health insurance coverage
CPT/HCPCS: 36415; 36600; 71045; 71275; 80048; 80053; 80061; 80307; 82805; 83605; 83880; 84484; 85025; 85379; 85610; 85730; 86850; 86900; 86901; 93005; 93306; 93312; 93460; 93571; 93970; 99291; G0378; J2250; J2405; Q9967